=== PATIENT | female | born 1965 | race Caucasian/White ===

== ENCOUNTER → 2021-06-27 15:36 | Outpatient (BNVA) | payer MEDICARE, MEDICAID, SELFPAY | PROVIDERS: Family Provider Nurse Practitioner Family; Visit Provider Orthopaedic Surgery | DX: M48.02 Spinal stenosis, cervical region; M47.12 Other spondylosis with myelopathy, cervical region | CPT/HCPCS: 72050 ==

== ENCOUNTER 2021-09-05 09:46 | Outpatient (CLI) | payer MEDICARE, MEDICAID, SELFPAY ==
--- NOTE | 2021-09-05 09:56 | MR_ITS ---
WS: [id number] MRI CERVICAL SPINE NONCONTRAST TECHNIQUE: Sagittal T1, T2 and STIR imaging. Axial T2, gradient, and fiesta imaging. CLINICAL INFORMATION: PAIN;SPONDYLOSIS W/MYELOPATHY CERVICAL REGIONA COMPARISON: None. FINDINGS: Some images degraded by patient motion. Straightening of the normal cervical lordosis. Disc osteophyte complex worse at C4 through C6. Slight anterolisthesis C4 on C5. Grade 1 anterolisthesis C6 on C7 measuring 3.[address] Severe central canal st enosis C5-C6 and C6-C7 with indentation and flattening of the cervical cord. Associated T2 cord signa l abnormality at these levels. C2-C3: Mild left bony foraminal narrowing. Moderate facet arthropathy. Mild disc osteophytic ridging. C3-C4: Moderate to advanced bilateral facet arthropathy. Spinal canal is patent. Moderate bilateral b mahi foraminal narrowing. C4-C5: Disc osteophyte complex with endplate ridging. Slight anterolisthesis. Small central disc oste ophyte protrusion with slight contact of the cervical cord and mild central canal stenosis. Severe ri ght and moderate left bony foraminal narrowing. Advanced facet arthropathy worse in the right. C5-C6: Disc osteophyte complex with endplate ridging. Severe central canal stenosis and indentation a nd flattening of the cervical cord. Severe bilateral bony foraminal narrowing. Moderate facet arthrop athy with uncovertebral joint hypertrophy. C6-C7: Grade 1 anterolisthesis. Severe central canal stenosis with central disc osteophyte disc bulgi ng. Flattening of the cervical cord with T2 signal abnormality. Moderate bilateral bony foraminal jeronimo rowing. Moderate facet arthropathy. Right dorsal ligamentum flavum hypertrophy or osteophyte. C7-T1: Tiny shallow central disc bulging. Spinal canal and foramen are patent. Small amount of edema in the articulating right greater than left C6-C7 articulating facets.Small ves heidi changes partially visualized in the inez. MR/MR cervical spin wo con* [id number] IMPRESSION: 1. Straightening of the normal cervical lordosis with severe central canal jeronimo rowing C5-C6 and C6-C7. Associated impingement with flattening of the cervical cord. Associated T2 cord signal abnormality at these levels. 2. Slight anterolisthesis C4 on C5 and grade 1 anterolisthesis C6 on C7 measur ing 3.3 mm. 3. Severe bilateral bony foraminal narrowing C5-C6 and moderate bony foraminal narrowing C6-C7. 4. Advanced facet arthropathy worse at C3-4, right C4-5, bilateral C5-C6. Notified Magnus Maya DO at 09/05/2021 11:36 AM.
== END 2021-09-05 09:47 | disposition home or self-care (01) ==
LOC: RADSHAW 09:48
PROVIDERS: Visit Provider Orthopaedic Surgery
DX: M47.12 Other spondylosis with myelopathy, cervical region (principal); M47.812 Spondylosis without myelopathy or radiculopathy, cervical region
CPT/HCPCS: 72141

== ENCOUNTER → 2021-09-21 11:42 | Outpatient (BNVA) | payer MEDICARE, MEDICAID, SELFPAY | PROVIDERS: Visit Provider Orthopaedic Surgery | DX: Z01.818 Encounter for other preprocedural examination (principal); Z20.822 Contact with and (suspected) exposure to COVID-19; M47.12 Other spondylosis with myelopathy, cervical region | CPT/HCPCS: 87635 ==

== ENCOUNTER 2021-09-25 15:00 | Observation (INO) | payer MEDICARE, MEDICAID, SELFPAY ==
--- NOTE | 2021-09-22 11:19 | ECG_ITS ---
[facility] Test Date: 2021-09-22 Pat Name: Amber Franks Department: Room: Gender: Female Cripple Chaser: : 1965 Requested By: Nate Skaggs Order Number: [id number] Samuel MD: Tucker Dimas M.D. Measurements Intervals [place] Rate: 97 P: 82 OK: 134 QRS: 62 QRSD: 82 T: 61 QT: 322 QTc: 409 Interpretive Statements SINUS RHYTHM POSSIBLE LEFT ATRIAL ENLARGEMENT [-0.1mV P WAVE IN V1/V2] No previous ECG available for comparison Electronically Signed On 09-25-2021 17:33:15 SHINGLE CATCHER by Tucker Dimas M.D. [id number]
--- NOTE | 2021-09-22 11:19 | XRR_ITS ---
PROCEDURE INFORMATION: Exam: XR Chest Exam date and time: 09/22/2021 11:19 AM Age: 56 years old Clinical indication: Screening exam; Pre-operative exam; Other: Cspine fusion; Additional info: Copd, evaluate lung space disease TECHNIQUE: Imaging protocol: XR of the chest. Views: 2 views. COMPARISON: CT chest con [id number] 09/08/2020 1:19 PM FINDINGS: Lungs: The lungs are over-inflated with flattening of the diaphragm consistent with pulmonary emphysema. There is upper lobe bullous formation and fibrosis. No acute pneumonia is seen. Pleural spaces: Unremarkable. No pleural effusion. No pneumothorax. Heart/Mediastinum: Unremarkable. No cardiomegaly. Bones/joints: Unremarkable. XR/XR chest 2V* [id number] IMPRESSION: Pulmonary emphysematous changes. No acute abnormality. Radiation Dose CTDIVOL = (mGy): DLP = (mGy-cm)
[2021-09-22 11:52] VITALS: BMI 15.1
[2021-09-22 12:25] LABS: Basophils % 0.2 %; Hemoglobin 14.3 g/dL (11.5-15.3); Lymphocytes # 1.1 10^3/uL (0.8-4.8); Lymphocytes % 7.2 %; Mean Corpuscular HGB Conc 31.8 g/dL (30.0-36.0); Mean Corpuscular Hemoglobin 27.8 pg (28.0-34.0); Mean Corpuscular Volume 87.4 fl (81-99); Mean Platelet Volume 8.7 fL (7.4-10.4); Monocytes # 0.5 10^3/uL (0.2-0.9); Monocytes % 3.2 %; Neutrophils # 12.91 10^3/uL (1.8-7.7); Neutrophils % 88.7 %; Nucleated Red Blood Cells % 0 %; Platelet Count 650 10^3/cmm (130-400); Red Blood Count 5.15 10^6/uL (4.1-5.3); Red Cell Distribution Width 17.5 % (12.1-15.1); White Blood Count 14.6 10^3/uL (4.0-10.0)
--- NOTE | 2021-09-22 12:39 | P.ANESASSM_ITS ---
Pre-Anesthetic Assessment Pre-Anesthetic Assessment: Height/Weight: Height 1.73 m Weight 45.178 kg Preop Diagnosis: Cervical spondylosis with myelopathy Proposed Procedure: Operation Date: 09/25/21 11:20 Proposed Procedures p C-6 Corpectomy(Not Applicable) - Magnus Maya DO s Anterior Cervical Discectomy & Fusion C5/6 C6/7 99820 24440 19323(x2) 44754(x2) 83884 M47.12(Not Applicable) - Magnus Maya DO Was Beta Jaden taken within 24 hours: N/A Was Clonidine taken within 24 hours: N/A Social: Social History: Tobacco and No alcohol Exam: Pre-Anes Outpt Exam: alert, oriented x 3 and regular rate & rhythm Additional Exam Findings (including area of procedure): Decreased BS, rhonchi Airway: Submandibular: WNL Cervical ROM: WNL MP: 2 Dentition: False Pulmonary: Pulmonary: COPD CV/HEM: CV/HEM: HTN Hepatic: Comments: Alpha-1 antitrypsin def Musc/skel: Musc/skel: OA/DJD and Weakness Comments: Myelopathy, trips and falls easy Neuropsych: Neuropsych: Anxiety and Neuropathy Anesthetic Plan: ASA status: 4 Anesthesia: General Other: A.line Risk of > 500 ml blood loss (7ml/kg in children): No PFSH Anesthesia PFSH: Social History Smoking and tobacco status: current every day smoker Data Anesthesia CBC & Chem 7: 09/22/21 12:10 09/22/21 12:10 Other Labs: Laboratory Results - last 48 hr 09/22/21 12:10 WBC 14.6 H RBC 5.15 Hgb 14.3 Hct 45.0 MCV 87.4 MCH 27.8 L MCHC 31.8 RDW 17.5 H Plt Count 650 H MPV 8.7 Neut % (Auto) 88.7 Lymph % (Auto) 7.2 [place] % (Auto) 3.2 Eos % (Auto) 0.0 Baso % (Auto) 0.2 Neut # (Auto) 12.91 H Lymph # (Auto) 1.1 [place] # (Auto) 0.5 Eos # (Auto) 0.0 Baso # (Auto) 0.0 Nucleated RBC % (auto) 0 Nucleated RBCs # 0.0 Cardiac Studies: No Data to Display
[2021-09-22 12:57] LABS: Anion Gap 18.7 (5-19); Blood Urea Nitrogen 14 mg/dL (6-20); Calcium 9.5 mg/dL (8.5-10.5); Carbon Dioxide 25 mmol/L (22-29); Chloride 100 mmol/L (98-107); Glomerular Filtration Rate 73.9 mL/min (90-130); Glucose 104 mg/dL (65-115); Osmolality Calculated 291 mOsm/kg (285-295); Potassium 3.7 mmol/L (3.5-5.1); Sodium 140 mmol/L (136-145)
[2021-09-25] VITALS (14 sets, daily range): BP systolic 92–141; BP diastolic 48–87; PULSE 73–110; RESP 13–21; TEMP 36.4–36.8; O2SAT 90–100; BMI 16.7
--- NOTE | 2021-09-25 | SCC_ITS ---
Procedure Done: 1. Anterior diskectomy C5/6 2. Anterior discectomy C6/7 3. corpectomy C6 greater than 50% 4. Insertion of Corpectomy cage C5-C7 5. Instrumentation with anterior plate from C5-C7 6. Use of allograft 27 seconds of fluoroscopic guidance, for a cumulative dose of 0.81 mGy, was provided to Dr. Maya by the radiology department. C-arm images of the cervical spine were saved for the patient's permanent record. NOLAN
--- NOTE | 2021-09-25 | XR_ITS ---
WS: [id number] Exam: XR cervical spine 3V* [id number] Date/Time of Exam: 09/25/2021 12:00 AM Reason For Exam: spondylosis with myelopathy Single AP and lateral intraoperative C-arm images of the cervical spine are submitted for evaluation. There is anterior plate and screw fixation from C5 to C7 with an intervening spacer at the C6 level. Hardware position appears to be satisfactory. An endotracheal tube is visualized in the airway.
--- NOTE | 2021-09-25 11:50 | P.ANESUD_ITS ---
Pre-Anesthetic Update Pre-Anesthetic Assessment: Date of Surgery/Procedure: 09/25/21 Preop Ann gnosis: Cervical spondylosis with myelopathy Proposed Procedure: Operation Date: 09/25/21 11:20 Proposed Procedures p C-6 Corpectomy(Not Applicable) - Magnus Maya, DO s Anterior Cervical Discectomy & Fusion C5/6 C6/7 51425 50096 50459(x2) 44085(x2) 80927 M47.12(Not Applicable) - Magnus Maya, DO Any changes to Pre-Anesthetic Assessment?: No Last Intake: Intake Last Liquid Date 09/25/21 Last Liquid Time 22:00 Last Solid Date 09/25/21 Last Solid Time 22:00 Vitals: Temperature 98.2 F 09/25/21 10:46 Temperature Source Temporal Artery S can 09/25/21 10:46 Pulse Rate 92 09/25/21 10:46 Respiratory Rate 18 09/25/21 10:46 Blood Pressure 137/65 09/25/21 10:46 Blood Pressure Lyudmila n 89 09/25/21 10:46 Pulse Oximetry 94 09/25/21 10:46 Oxygen Delivery Me thod 09/25/21 10:37 Exam: Pre-Anes Outpt Exam: alert, oriented x 3, clear to auscultation bilaterally and regular rate & rhythm Cardiac Studies: No Data to Display
--- NOTE | 2021-09-25 12:00 | W.PM.OPSUD ---
Surgery/Procedure H&P Update DATE OF PROCEDURE: September 25, 2021 DATE H&P PERFORMED: 09/05/21 H&P UPDATE INFORMATION: I have reviewed H&P completed within last 30 days, I have examined patient prior to procedure and No changes to prior documentation PREOP DIAGNOSIS: Cervical spondylosis with myelopathy PLANNED PROCEDURE: Operation Date: 09/25/21 11:20 Proposed Procedures p C-6 Corpectomy(Not Applicable) - DO otis Harman Anterior Cervical Discectomy & Fusion C5/6 C6/7 [id number] 56317(x2) 85461(x2) 44211 M47.12(Not Applicable) - Magnus Maya DO
[2021-09-25] MEDS: fentaNYL 50 mcg/mL INJ 2mL IVP ×2 (15:16→15:21)
--- NOTE | 2021-09-25 15:30 | P.OP_ITS ---
Operative Report Date of procedure: September 25, 2021 Pre-op Diagnosis: Cervical spondylosis with myelopathy Post-op diagnosis: same Procedure Done: 1. Anterior diskectomy C5/6 2. Anterior discectomy C6/7 3. corpectomy C6 greater than 50% 4. Insertion of Corpectomy cage C5-C7 5. Instrumentation with anterior plate from C5-C7 6. Use of allograft Surgeon: Magnus Maya Master Fire Control Technician: Noble Alexander Master Fire Control Technician: The malt specifications control assistant, Noble Alexander, GORDON was needed for his expertise under the microscope. He was important and necessary throughout the procedure to complete in a safe and timely manner. He assisted with patient positioning prepping and draping tissue retraction suctioning of the operative field protection of the dural sac and tissue closure Anesthesia: General Estimated blood loss (mL): 50 Condition: stable Disposition: PACU Procedure: 1. Anterior diskectomy C5/6 2. Anterior discectomy C6/7 3. corpectomy C6 greater than 50% 4. Insertion of Corpectomy cage C5-C7 5. Instrumentation with anterior plate from C5-C7 6. Use of allograft 7. use of autograft The patient was taken to the operating room, where he underwent general endotracheal anesthesia without complications. He was then positioned supine on the operating table, and all areas of impingement were well padded. The arms were carefully padded and tucked at his sides. A roll was placed between the shoulder blades.. An x-ray was done to determine the appropriate level for the skin incision. The entire neck was then sterilely prepped and draped in the usual fashion. Neuromonitoring was attached prior to prepping. A transverse skin incision was made and carried down to the platysma muscle. This was then split in line with its fibers. Blunt dissection was carried down medial to the carotid sheath and lateral to the trachea and esophagus until the anterior cervical spine was visualized. A needle was placed into a disc and an x-ray was done to determine its location. The longus colli muscles were then e levated bilaterally with the electrocautery unit. Self-retaining retractors were placed deep to the longus colli muscle. Attention was brought to the C5 to C7 level that was confirmed on x-ray. A april par pin was placed into the C5 vertebrae and the C7 vertebrae. The disk spaces was then distracted. The microscope was then brought in. A radical anterior discectomies were performed at C5/6 and C6/7. This included complete removal of the anterior annulus, nucleus, and posterior annulus. The posterior longitudinal ligament was removed as were the posterior osteophytes. Foraminotomies were then accomplished bilaterally. This was done using a high speed conrado, kerrison rongeurs and curretes Once all of this was accomplished, the curved currette was used to check for any residual compression. The central canal was wide open as were the foramen. A high-speed bur was used to remove the cartilaginous endplates C5 inferiorly and superiorly at C7 Bleeding cancellous bone was exposed. The C6 corpectomy was then performed. High speed bur was used to take out the lateral aspect of the C6 vertebrae. The rongeur was used to remove bone. The disc bases were identified and curved curette was used to identify the posterior aspect of the vertebrae and then a 2 oh Kerrison was used to remove the vertebrae down to the posterior longitudinal ligament. The posterior longitudinal ligament was expo sed from the superior aspect of C7 up to the inferior aspect of C5. This was then removed using the Kerrison rongeur dura was exposed from superior aspect of C7 up to the inferior aspect of C5. The space was then irrigated a trial was measured the appropriate size cage was then inserted the bone graft from the cage was allograft osteoamp as well as some of the bone from the corpectomy. The [place] pins were removed. Bone wax was used to prevent any bleeding from occurring at the pin sites. The appropriate size anterior cervical locking plate was chosen and bent into gentle lordosis. Two screws were then placed into each of the vertebral bodies at C5 and C7. There was excellent purchase. A final x-ray was done confirming good position of the hardware and Cages. The locking screws were then applied, also with excellent purchase. Following a final copious irrigation, there was good hemostasis and no dural leaks. The carotid pulse was strong. The wounds were then closed in layers using 2-0 Vicryl suture for the platysma muscle, 2-0 Vicryl suture for the subcutaneous tissue, and 4-0 monocryl suture in a subcuticular skin closure. Glue was placed followed by application of a sterile dressing. The drain was hooked to bulb suction. A soft collar was applied. The patient was then carefully returned to the supine position on his hospital bed where he was reversed and extubated and taken to the recovery room having tolerated the procedure well.
--- NOTE | 2021-09-25 16:59 | ANE.PACU2 ---
Inpatient post-anesthesia follow up: Airway intact: Yes Vital signs: Temperature 97.8 F Pulse Rate 86 Respiratory Rate 18 Blood Pressure 140/87 Pulse Oximetry 94 Oxygen Delivery Me thod Room Air Oxygen Flow Rate 8 Fraction of Inspir ed Oxygen Hydration adequate: Yes Nausea and vomiting: No Pain level: 2 Mental status: Baseline
[2021-09-25] MEDS: HYDROcodone-acetaminophen 5-325 mg Tablet PO (17:09)
[2021-09-25] MEDS: gabapentin 300 mg Capsule 600 MG PO (22:18)
[2021-09-25] MEDS: lisinopril 2.5 mg Tablet PO (22:18)
[2021-09-26] VITALS: BP 93/54; PULSE 83; RESP 17; TEMP 36.6; O2SAT 94
[2021-09-26] MEDS: lactated ringers 1,000 ML 90 ML IV (02:43)
[2021-09-26 05:12] VITALS: BP 101/62; PULSE 76; RESP 17; TEMP 36.6; O2SAT 94
[2021-09-26] MEDS: enoxaparin 40 mg/0.4 mL Syringe SUBCUT (05:21)
--- NOTE | 2021-09-26 07:32 | P.PN_ITS ---
Documented by User: LAITH Boyle 09/26/21 07:34 Subjective Subjective: Interval history: POD 1 Patient reports improvement of her arms and legs with her ability to mobilize. Some mild swallowing discomfort. Denies any voice changes shortness of breath or chest pain. She is feeling better postoperatively. Some mild neck pain. she is ambulating to the bathroom. Vitals/I&O/Wt Last Vital Signs Temp 97.8 F 09/26/21 05:12 Pulse 76 09/26/21 05:12 Resp 17 09/26/21 05:12 BP 101/62 09/26/21 05:12 Pulse Ox 94 09/26/21 05:12 09/25/21 09/26/21 09/26/21 22:59 06:59 14:59 Intake Total 540 / 600 160 / 760 120 / 120 Output Total 50 / 50 Balance 490 / 550 160 / 710 120 / 120 Weight last 48 hrs Weight 110 lb Physical Exam Narrative: EXAM NARRATIVE: Patient is alert and oriented x3 with a good general appearance normal normal affect. Mildly tender with palpation about the incisional site. Good motor strength throughout both upper extremities. Appears to fire in all motor groups with 4/5 strength. Hands are warm good cap refill in all digits. Normal sensation to light touch in all dermatomal areas. Data : 09/22/21 12:10 09/22/21 12:10 A&P Assessment and plan (1) Spondylosis of cervical spine with myelopathy: Continue mobilizing with a walker. Have physical therapy evaluate. Should continue the [place] J collar. We will see her back in the office in 1 week's time for wound check. She will call if she is having problems. Work on discharging her home today. Status: Acute (2) Status post cervical spinal fusion: Status: Acute Attestations Medical Necessity Statement*: home today Coding Level of Care Code Acute Cut Off Sawyer Log for Edna Abad Diagnoses Spondylosis of cervical spine with myelopathy M47.12 Status post cervical spinal fusion Z98.1 Documented by User: Magnus Maya DO 09/26/21 08:36 Data : 09/22/21 12:10 09/22/21 12:10 Coding Level of Care Code Acute Cut Off Sawyer Log for Chg Fwd Diagnoses Spondylosis of cervical spine with myelopathy M47.12 Status post cervical spinal fusion Z98.1
[2021-09-26] MEDS: HYDROcodone-acetaminophen 5-325 mg Tablet PO (07:55)
[2021-09-26] MEDS: gabapentin 300 mg Capsule 600 MG PO (07:55)
[2021-09-26] MEDS: docusate sodium 100 mg Capsule PO (07:55)
[2021-09-26] MEDS: latanoprost 0.005% Op Soln 2.5 mL Btl 1 DROP EYE-BOTH (07:56)
[2021-09-26] MEDS: venlafaxine ER (24HR) 75 mg Capsule PO (08:04)
--- NOTE | 2021-09-26 08:36 | P.DS_ITS ---
Discharge Providers Date of Admission: 09/25/21 15:00 Date of Discharge: September 26, 2021 Attending Provider at Admission: Magnus Maya DO Attending Provider at Discharge: Magnus Maya DO Primary Care Provider: Dasia Sena MD Diagnoses at Discharge Discharge Diagnosis (1) Spondylosis of cervical spine with myelopathy: Status: Acute (2) Status post cervical spinal fusion: Status: Acute Reason for Visit Reason for Visit: Spondylosis with myelopathy Hospital Course Hospital Course Patient is admitted on 09/25/2021 for a C6 corpectomy ACDF. She will be discharged on 09/26/2021. Her hospital stay was uneventful. Discharge Data Data Completed and Pending: Completed Studies During Hospitalization Category Date Time Status XR cervical spine 3V* [id number] Routine Exams 09/25/21 Completed XR chest 2V* [id number] Routine Exams 09/22/21 11:19 Completed Pending at discharge Category Date Time Status C-arm Fluoroscopy [id number] Routine Exams 09/25/21 10:04 Taken Vitals: Last Vital Signs Temp 97.8 F 09/26/21 05:12 Pulse 76 09/26/21 05:12 Resp 17 09/26/21 05:12 BP 101/62 09/26/21 05:12 Pulse Ox 94 09/26/21 05:12 Discharge Plan Discharge Patient Disposition: Home Condition: Stable Prescriptions: New hydrocodone-acetaminophen 5-325 mg tablet 1 - 2 tab PO .Q4-6H Qty: 40 RF: 0 Continued omega-3 acid ethyl esters 1 gram capsule 1 cap PO DAILY RF: 0 venlafaxine 75 mg capsule,extended release 24hr 75 mg PO DAILY RF: 0 gabapentin 600 mg tablet 600 mg PO TID RF: 0 cholecalciferol (vitamin D3) 125 mcg (5,000 unit) capsule 125 mcg PO DAILY RF: 0 latanoprost 0.005 % drops 1 drp ophthalmic (eye) DAILY RF: 0 lisinopril 2.5 mg Tablet 2.5 mg PO BEDTIME RF: 0 Xanax 1 mg Tablet 1 mg PO TID RF: 0 Discharge Orders: Discharge Order (Routine); Ordered 09/26/21 Ordered By: Magnus Maya Discharge Diet: Advance as tolerated Discharge Activity: Limit activity as instructed Patient Instructions: Opioid Safety Activity Restrictions/Additional Instructions: Thank you for choosing [facility] for your care! The following is a list of instructions, from your provider, to follow upon your discharge to ensure you have the optimal recovery from your recent injury or surgery. Anterior Cervical Discectomy and Fusion: What to Expect at Home Your Recovery Follow-up care is a ceballos part of your treatment and safety. Be sure to make and go to all appointments, and call your doctor if you are having problems. If you do not already have a follow-up appointment made, call office in the next 1-3 days to make follow up appointment for 2 weeks at [phone]. It is also a good idea to know your test results and keep a list of the medicines you take. You can expect your neck to feel stiff or sore after surgery. This should improve in the weeks after surgery. But it may take 4 to 6 months for you to get better completely. You may have trouble sitting or standing in one position for very long and may need pain medicine in the weeks after your surgery. It may take 4 to 6 weeks to get back to your usual activities, but it may depend on what kind of surgery you had. Your throat will feel sore and it may be difficult to swallow for the first 3 days after your surgery. As long as you can get liquids down without difficulty, this should slowly improve, otherwise call our office or seek medical attention if it becomes increasingly difficult to get anything down including liquids. Avoid hot liquids for first 3-5 days. Soothing foods/liquids such as jello, pudding, and luke warm soups are recommended until swallowing improves. Staying elevated will also help, it's advised you keep propped up at while sleeping to help reduce the swelling. You may use an ice pack directly on your incision or around it on the front of your neck, using a cloth to protect your skin; and a heating pad to the back of your neck as needed. Do not use over the counter anti-inflammatory medications (Ibuprofen, Motrin, Aleve, Advil, etc) Taking these meds after having a fusion can delay fusion rates, we recommend you avoid them for the first 3 months after your surgery[address] Dr. Maya may advise you to work with a physical therapist to strengthen the muscles around your neck and back - this will be discussed at your follow - up appointments. The pain or numbness you were having in your arms before surgery should get better or go away completely. This care sheet gives you a general idea about how long it will take for you to recover. But each person recovers at a different pace. Follow the steps below to get better as quickly as possible. How can you care for yourself at home? Activity ? Rest when you feel tired. Getting enough sleep will help you recover. ? Try to walk each day. Start by walking a little more than you did the day before. Bit by bit, increase the amount you walk. Walking boosts blood flow and helps prevent pneumonia and constipation. Walking may also decrease your muscle soreness after surgery. ? No lifting anything that is more that 5 pounds. This may include heavy grocery bags and milk containers, a heavy briefcase or backpack, cat litter or dog food bags, a child, or a vacuum carpet cleaner. ? Avoid strenuous activities, such as bicycle riding, jogging, weightlifting, or aerobic exercise, until your doctor says it is okay. ? Do not drive until your follow-up visit after your surgery, or until your doctor says it isokay. ? Avoid taking long car trips for 2 to 4 weeks after surgery. Your neck may become tired and painful from sitting too long in one position. ? You will probably need to take 4 to 6 weeks off from work. It depends on the type of work you do and how you feel. ? You may have sex as soon as you feel able, but avoid positions that put stress on your neck or cause pain. Diet ? You can eat your normal diet. If your stomach is upset, try bland, low-fat foods like plain rice, broiled chicken, toast, and yogurt ? Drink plenty of fluids. If you have kidney, heart, or liver disease and have to limit fluids, talk with your doctor before you increase the amount of fluids you drink. ? You may notice that your bowel movements are not regular right after your surgery. This is common. Try to avoid constipation and straining with bowel movements. You may want to take a fiber supplement every day. If you have not had a bowel movement after a couple of days, ask your doctor about taking a mild laxative. Medicines ? Take pain medicines exactly as directed. 1. If Dr. Maya gave you a prescription medicine for pain, take lt as prescribed. 2. Do not take two or more pain medicines at the same time unless the doctor told you to. Many pain medicines have acetaminophen, which is Tylenol. Too much acetaminophen {Tylenol) can be harmful. 3. If you think your pain pill is making you sick to your stomach: 4. Take your pills after meals (unless your doctor has told you not to). 5. Ask your Dr. for a different pain pill. Incisioncare ? Remove your dressing 48hours after your surgery. Ok to shower and get the incision wet. Do not overtly wash your incision. When done, pad dry, leave open to air thereafter. Avoid creams and ointments directly on your incision. ? Your sutures in the incision will dissolve and fall out on their own. ? Keep the area clean and dry. You may cover it with a gauze bandage if it weeps or rubs against clothing; if you choose to do this, change the dressing everyday. Other instructions ? Use a heating pad, hot water bottle, or gentle massage on your back to reduce stiffness. Avoid putting heat on your incision When should you call for help? ? Call 911 anytime you think you may need emergency care. For example, call if: ? You pass out (lose consciousness). ? You have sudden chest pain and shortness of breath, or you cough upblood. ? You cannot swallow. ? You have severe pain in your neck or back. ? Call your Dr. or seek immediate medical care if: ? You have pain that does not get better after you take pain pills. ? You have loose stitches, or your incision comes open. ? You have blood or fluid draining from the incision. ? You have signs of infection, such as: 1. Increased pain, swelling, warmth, or redness. 2. Red streaks leading from the site. 3. Pus draining from the site. 4. Swollen lymph nodes in your neck or armpits. 5. A fever. ? You have severe pain in your arms. ? You have new or increased weakness or numbness in your arms. ? Watch closely for any changes in your health, and be sure to contact your doctor if: ? You do not have a bowel movement after taking a laxative. Discharge Attestations Time Spent in Discharge Care*: less than 30 min Quality Metrics Clinical Quality Measures During this hospital stay, did patient experience: None Coding Level of Care Code Acute Chg FW DC note Diagnoses Spondylosis of cervical spine with myelopathy M47.12 Status post cervical spinal fusion Z98.1
[2021-09-26 08:41] VITALS: PULSE 108; RESP 18; O2SAT 93
--- NOTE | 2021-09-26 13:07 | PC.NURSE ---
DISCHARGE INSTRUCTIONS DISCHARGE INSTRUCTIONS GIVEN TO PT AND FAMILY MEMBER - BOTH VERBALIZE UNDERSTANDING - PT REQUESTS THAT HYDROCODONE SCRIPT BE SENT TO [facility] AT DR HUGO'S OFFICE NOTIFIED AND WILL GIVE REQUEST TO DR OANH PHILIPPE
[2021-09-26 13:10] VITALS: PULSE 108; RESP 18; O2SAT 93
== END 2021-09-26 13:12 | disposition home or self-care (01) ==
LOC: MEDSURG 15:04
PROVIDERS: Anesthesiology; Admitting Provider Orthopaedic Surgery; PCP Obstetrics & Gynecology; Visit Provider Orthopaedic Surgery
PROC: (CPT 22554; principal; 2021-09-25 11:10)
PROC: 0RB30ZZ Excision of Cervical Vertebral Disc, Open Approach (ICD-10-PCS; CPT 22551; 2021-09-25 11:10)
DX: M47.12 Other spondylosis with myelopathy, cervical region (principal); J44.9 Chronic obstructive pulmonary disease, unspecified; I10 Essential (primary) hypertension; E88.01 Alpha-1-antitrypsin deficiency; F41.9 Anxiety disorder, unspecified; F17.200 Nicotine dependence, unspecified, uncomplicated
CPT/HCPCS: 22554 ×2; 22585; 22845 ×2; 22854 ×2; 36415; 71046; 72040; 76000; 80048; 85025; 93005; 96372; 97110; 97116; 97161; 97530; 97760; C1713; C9359; G0378; J0330; J0690; J1100; J1650; J2370; J2405; J2704; J2710; J3010; J3490; L0174

== ENCOUNTER → 2021-11-14 15:26 | Outpatient (BNVA) | payer MEDICARE, MEDICAID, SELFPAY | PROVIDERS: PCP Obstetrics & Gynecology; Visit Provider Physician Assistant | DX: Z98.1 Arthrodesis status (principal) | CPT/HCPCS: 72040 ==

== ENCOUNTER → 2021-12-26 13:13 | Outpatient (BNVA) | payer MEDICARE, MEDICAID, SELFPAY | PROVIDERS: PCP Obstetrics & Gynecology; Visit Provider Physician Assistant | DX: Z98.1 Arthrodesis status (principal) | CPT/HCPCS: 72040 ==

== ENCOUNTER → 2022-02-06 14:55 | Outpatient (BNVA) | payer MEDICARE, MEDICAID, SELFPAY | PROVIDERS: PCP Obstetrics & Gynecology; Visit Provider Physician Assistant | DX: M54.2 Cervicalgia (principal); Z98.1 Arthrodesis status | CPT/HCPCS: 72040; 99214; 99999 ==

== ENCOUNTER 2022-02-28 11:16 | Outpatient (CLI) | payer MEDICARE, MEDICAID, SELFPAY ==
--- NOTE | 2022-02-28 10:30 | CT_ITS ---
WS: [id number] CT CERVICAL SPINE TECHNIQUE: Noncontrast CT of the cervical spine with coronal and sagittal reformatted images. CLINICAL INFORMATION: post op COMPARISON: None. DLP: 226.[address] scans at [facility] use at least one of these dose optimization techniques: automated e xposure control; mA and/or kV adjustment per patient size (includes targeted exams where dose is matc hed to clinical indication); or iterative reconstruction. FINDINGS: Straightening of the normal cervical lordosis. Slight grade 1 anterolisthesis C4 on C5 measuring 2.6 mm. Postoperative changes ACDF with partial corpectomy and interbody strut graft C5-C7. Partial corpe ctomy at C6. Hardware appears intact. No evidence of hardware loosening. Central canal stenosis has b een decompressed compared to the prior MRI September 05, 2021. C2-C3: Mild facet arthropathy worse in the LEFT. Small central disc osteophyte complex. Mild LEFT for aminal narrowing. C3-C4: Moderate RIGHT and no significant LEFT foraminal narrowing. Advanced facet arthropathy. Small central disc protrusion. Mild central canal stenosis. C4-C5: Advanced RIGHT facet arthropathy. Small central disc protrusion with mild central canal stenos is. Slight contact of the cervical cord. Mild RIGHT foraminal narrowing. C5-C6: Postoperative changes anterior cervical fusion. Moderate LEFT and mild RIGHT bony foraminal na rrowing. Moderate to advanced facet arthropathy with uncovertebral joint hypertrophy. Mild central ca nal stenosis with osteophytic ridging. C6-C7: Postoperative changes partial corpectomy with spinal canal decompression. Spinal canal is olvera nt. Mild LEFT and no significant RIGHT foraminal narrowing. C7-T1: No significant disc bulging. Spinal canal and foramen are patent. Visualized posterior nasopharynx: Normal. Prevertebral soft tissues: Normal. Cystic bronchiectasis partially visualized in the upper lobes with emphysematous change with bulla fo rmation. Thick-walled cavitary lesion in the RIGHT upper lobe appears similar to September 08, 2020. CT/CT cervical spin wo con* [id number] IMPRESSION: 1. Straightening of the normal cervical lordosis with grade 1 anterolisthesis C4 on C5 is unchanged. 2. Anterior cervical fusion C5-C7 with partial corpectomy at C6. Interbody str ut graft is new from previous. Spinal canal narrowing has been decompressed at these levels. 3. Small central disc protrusions at C3-C4 and C4-C5 with mild central canal s tenosis. 4. Multilevel moderate bony foraminal narrowing worse at RIGHT C3-C4, RIGHT C4 -C5, and LEFT C5-C6. This is worse at LEFT C5-C6. 5. Moderate to advanced asymmetric facet arthropathy worse at LEFT C2-C3, RIGH T C3-C4, RIGHT C4-C5, and bilateral C5-C6. 6. Cavitary spiculated lesion in the RIGHT upper lobe is similar to the prior examinations. This is only partially visualized. Recommend interval follow-up w ith chest CT.
== END 2022-02-28 11:17 | disposition home or self-care (01) ==
LOC: RAD 11:20
PROVIDERS: PCP Obstetrics & Gynecology; Visit Provider Physician Assistant
DX: Z98.1 Arthrodesis status (principal); M50.21 Other cervical disc displacement, high cervical region; J98.4 Other disorders of lung
CPT/HCPCS: 72125

== ENCOUNTER 2022-03-08 10:00 | Outpatient (CLI) | payer MEDICARE, MEDICAID, SELFPAY ==
--- NOTE | 2022-03-08 10:14 | MR_ITS ---
WS: [id number] MRI CERVICAL SPINE NONCONTRAST HISTORY: post op COMPARISON: 09/05/2021. CT 02/29/2020. Technique: Multiplanar, multisequence noncontrast imaging of the cervical spine. Status post anterior cervical fusion from C5 through C7 with partial corpectomy at C6. Slight straightening of the normal cervical lordosis. Mild metal artifact at the level of the fusion. No new areas of marrow edema. Focal area of increased T2 signal extends over a length of 2.1 cm cent ered at C5-C7. This has been previously described on the prior MRI with mild progression. Increased o n the T2 sequences and low signal on the T1 in the central cervical cord. Craniocervical junction, C1 and C2 relationship, odontoid process and soft tissues are normal. C2-C3: Mild LEFT bony foraminal stenosis. Small central disc with no central stenosis. C3-C4: Diffuse annular disc bulging and osteophytic ridging. Small central disc protrusion. Moderate bilateral foraminal narrowing due to osteophytes. C4-C5: Mild annular disc bulging. C4 anterolisthesis by 3 mm. Disc osteophyte complexes bilaterally. There is a central disc contacting the ventral cord. Disc osteophyte complexes are causing at least m oderate to severe foraminal stenosis and mild central stenosis. C5-C6: Severe central canal stenosis. Disc and osteophyte encroaching into the RIGHT foramen with sev ere stenosis. There is an abrupt termination of CSF along the RIGHT lateral thecal sac. Suspicious fo r an osteophyte or disc protrusion extending into the RIGHT subarticular recess. There is also ligame ntum flavum hypertrophy posterior lateral on the RIGHT. Disc and osteophyte disease causing a moderat e to severe LEFT foraminal stenosis also. C6-C7: Soft tissue encroachment or bone encroachment into the posterior lateral RIGHT thecal sac defo rming the thecal sac. On the CT this encroachment upon the thecal sac is noted to be a bone fragment or osteophyte. Moderate to severe central and mild bilateral foraminal stenosis. C7-T1: Mild disc bulging. No stenosis. Paraspinal soft tissue are normal. MR/MR cervical spin wo con* [id number] IMPRESSION: 1. Patient is status post prior anterior cervical fusion from C5 through C7 wi th partial corpectomy at C6. 2. Severe central stenosis at C5-6. Abrupt termination of CSF along the RIGHT lateral thecal sac. Suspect there may be a disc protrusion or osteophyte extend ing along the RIGHT thecal sac contributing to the stenosis. There is severe ce ntral and moderate to severe bilateral foraminal stenosis at this level. 3. Moderate to severe foraminal stenosis and mild central stenosis at C4-5. 4. Moderate to severe central and mild bilateral foraminal stenosis at C6-7. 5. Moderate bilateral foraminal stenosis at C3-4. 6. 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
== END 2022-03-08 10:01 | disposition home or self-care (01) ==
PROVIDERS: PCP Obstetrics & Gynecology; Visit Provider Physician Assistant
DX: M47.12 Other spondylosis with myelopathy, cervical region (principal); Z98.1 Arthrodesis status
CPT/HCPCS: 72141; 99214

== ENCOUNTER 2022-03-16 13:31 | Inpatient (IN) | payer MEDICARE, MEDICAID, SELFPAY ==
[2022-03-13 13:14] VITALS: BMI 16.9
[2022-03-16] VITALS (24 sets, daily range): BP systolic 94–178; BP diastolic 67–108; PULSE 80–115; RESP 12–18; TEMP 36.1–36.7; O2SAT 94–100
--- NOTE | 2022-03-16 | SCC_ITS ---
71.4 seconds of fluoroscopic guidance, for a cumulative dose of 3.70 mGy, was provided to Dr. Maya by the radiology department. C-arm images of the cervical spine were saved for the patient's permanent record. [facility]
--- NOTE | 2022-03-16 | XR_ITS ---
WS: [id number] Exam: XR cervical spine 3V* [id number] Date/Time of Exam: 03/16/2022 12:00 AM Reason For Exam: cervical spondylosis Comparison 02/06/2022. Stable-appearing anterior fusion hardware from C5 to C7. New posterior hardware extends from C3 to T2 . Alignment is satisfactory. An endotracheal tube is noted in the airway. XR/XR cervical spine 3V* [id number] IMPRESSION: 1. Recent Posterior fusion from C3 to T2 which appears to be in satisfactory al ignment. 2. Pre-existing anterior fusion from C5 to C7 is stable in appearance.
--- NOTE | 2022-03-16 10:12 | ANES.PREANE2 ---
Pre-Anesthetic Assessment Height/Weight: Height 1.73 m Weight 50.349 kg Temp Pulse Resp BP Pulse Ox 98 F 84 15 139/91 95 03/16/22 10:00 03/16/22 10:00 03/16/22 10:00 03/16/22 10:00 03/16/22 10:00 Preop Diagnosis: Cervical Spondylosis with Myelopathy Operation Date: 03/16/22 10:50 Proposed Procedures p Cervical Posterior Fusion C3-T2, C5-7 Decompression [id number]/01462/m47.12(Not Applicable) - Magnus Maya, DO Familial anesthetic complications: None Was Beta Jaden taken within 24 hours: N/A Was Clonidine taken within 24 hours: N/A Last intake: Intake Last Liquid Date 03/16/22 Last Liquid Time 09:00 Last Solid Date 03/15/22 Last Solid Time 20:00 Social Tobacco and No alcohol Exam alert, oriented x 3 and regular rate & rhythm breath sounds diminished b/l no murmurs Airway Submandibular: within normal limits Cervical ROM: Other (very limited extension/flexion ) Mallampati: Class III Dentition: false Pulmonary Exertional Dyspnea Hx of alpha 1 antitrypsin affecting lungs, denies liver involvement CV/HEM Congestive Heart Failure and Hypertension EKG 10/10 Interpretive Statements SINUS RHYTHM POSSIBLE LEFT ATRIAL ENLARGEMENT? [-0.1mV P WAVE IN V1/V2] No previous ECG available for comparison Electronically Signed On 09-25-2021 17:33:15 [employer]ORDINATE MEASURING MACHINE OPERATOR by Tucker Dimas M.D. [email or web address] None reported Hepatic None reported GI None reported Metabolic None reported Musc/skel Lower Back Pain and Osteoarthritis/DJD Chronic pain Cervical spondylosis w/ myelopathy Neuropsych Anxiety and Depression Anesthetic Plan ASA status: 3 Anesthesia: Anesthesia Evaluation and General Other: We discussed risk and benefits of general anesthesia including PONV, sore throat (sometimes severe), corneal abrasion, positioning and peripheral nerve injuries, life threatening allergic reaction, post operative ICU admission requiring prolonged intubation, stroke, heart attack, , and rare incidences of recall. Patient consents to proceed with general anesthesia. Plan GETA, 2 PIV , arterial line Risk of > 500 ml blood loss (7ml/kg in children): No Medications/Allergies Home Medications Medication Instructions Recorded Confirmed Last Taken Type cholecalciferol (vitamin D3) 125 125 mcg PO DAILY 06/27/21 03/16/22 03/15/22 History mcg (5,000 unit) capsule gabapentin 600 mg tablet 600 mg PO TID 06/27/21 03/16/22 03/16/22 History omega-3 acid ethyl esters 1 gram 1 cap PO DAILY 06/27/21 03/16/22 03/15/22 History capsule venlafaxine 75 mg capsule,extended 75 mg PO DAILY 06/27/21 03/16/22 03/15/22 History release 24 hr latanoprost 0.005 % eye drops 1 drp OPHTHALMIC (EYE) DAILY 09/05/21 03/16/22 03/15/22 History alprazolam 1 mg tablet (Xanax) 1 mg PO TID 09/22/21 03/16/22 03/16/22 History lisinopril 2.5 mg tablet 2.5 mg PO BEDTIME 09/22/21 03/16/22 03/15/22 History hydrocodone 5 mg-acetaminophen 325 1 - 2 tab PO .Q4-6H #40 tab 09/25/21 03/13/22 Unknown Rx mg tablet Physical Therapy- [place] #1 ea 12/26/21 03/06/22 Unknown Rx Rehabilitation pravastatin 20 mg tablet 20 mg PO DAILY 03/13/22 03/16/22 03/02/22 History hydrocodone 5 mg-acetaminophen 325 1 - 2 tab PO .Q4-6H PRN 7 Days #40 03/15/22 03/16/22 03/16/22 Rx mg tablet tab Allergies Allergy/AdvReac Type Severity Reaction Status Date / Time quinine Allergy ALGY-Rash Verified 03/13/22 13:09 [facility] Anesthesia Social History Smoking and tobacco status: current every day smoker Data Anesthesia Cardiac Studies: No Data to Display
--- NOTE | 2022-03-16 10:14 | W.PM.OPSUD ---
Surgery/Procedure H&P Update DATE OF PROCEDURE: March 16, 2022 DATE H&P PERFORMED: 03/08/22 H&P UPDATE INFORMATION: I have reviewed H&P completed within last 30 days, I have examined patient prior to procedure and No changes to prior documentation PREOP DIAGNOSIS: Cervical Spondylosis with Myelopathy PLANNED PROCEDURE: Operation Date: 03/16/22 10:50 Proposed Procedures p Cervical Posterior Fusion C3-T2, C5-7 Decompression [id number]/36597/m47.12(Not Applicable) - Magnus Maya DO
[2022-03-16 10:46] LABS: Blood Urea Nitrogen 12 mg/dL (6-20); Calcium 9.9 mg/dL (8.5-10.5); Carbon Dioxide 30 mmol/L (22-29); Chloride 101 mmol/L (98-107); Creatinine Clr Calc Pharmacy 54.8167; Glomerular Filtration Rate 64.5 mL/min (90-130); Glucose 87 mg/dL (65-115); Osmolality Calculated 285 mOsm/kg (285-295); Sodium 138 mmol/L (136-145)
[2022-03-16 10:51] LABS: Anion Gap 11.3 (5-19); Potassium 4.3 mmol/L (3.5-5.1)
[2022-03-16] MEDS: vancomycin 1,000 MG SDV 1000 MG XX (13:10)
--- NOTE | 2022-03-16 14:07 | PM.OP ---
Operative Report Date of procedure: March 16, 2022 Pre-op diagnosis: Preop Diagnosis Cervical Spondylosis with Myelopathy Post-op diagnosis: same Procedure done: 1. C3-T2 posterior spine instrumentation 2. C3- T2 Posterior spine fusion 3. C4 laminectomy with partial facetectomy 4. C5 laminectomy with partial facetectomy 5. C6 laminectomy with partial facetectomy 6. C7 laminectomy with partial facetectomy 7. allograft 8. autograft from same incision Surgeon: Magnus Maya Diamond Powder Technician: Noble Alexander Diamond Powder Technician: The early childhood teacher assistant, Noble Alexander, PAC was needed for his expertise under the microscope. He was important and necessary throughout the procedure to complete in a safe and timely manner. He assisted with patient positioning prepping and draping tissue retraction suctioning of the operative field protection of the dural sac and tissue closure Estimated blood loss (mL): 50 Procedure: 1. C3-T2 posterior spine instrumentation 2. C3- T2 Posterior spine fusion 3. C4 laminectomy with partial facetectomy 4. C5 laminectomy with partial facetectomy 5. C6 laminectomy with partial facetectomy 6. C7 laminectomy with partial facetectomy 7. allograft 8. autograft from same incision Patient is brought to the operative suite after undergoing anesthesia was placed in the prone position all areas impingement well-padded. Patient was then prepped and draped normal sterile fashion. Skin incision made from C3 down to T2 level. The posterior cervical fascia was identified. Subperiosteal dissection was made out to the lateral masses of C3 down to C7. And out to the transverse processes of T1 and T2. Retractors were placed after the exposure was complete. Attention was first brought to placing the pedicle screws in T1 and T2 bilaterally. This was done by identifying the pedicles of T1 and T2 bilaterally. Using C-arm guidance. Drill was used to get the starting point followed by the gearshift probe. Followed by the pedicle feeler and then for 30 mm screws were placed. Next attention was brought to placing the lateral mass screws. Lateral mass screws were placed at C3 bilaterally, C4 bilaterally, C5 bilaterally, C6 bilaterally. This by using a 12 mm drill 20 in the upper outer corner of the lateral mass. This drilled and filled with a pedicle feeler and then size 14 mm screws were placed at each of these levels. Once all screws were placed attention was then brought brought to placing the rods. Rods were measured and cut to appropriate size. And then end caps were placed. Rods were placed bilaterally. Next attention was brought to performing the laminectomies. Starting at C7 bilateral cuts were made and the lamina and medial aspect of the facet joint with a high-speed bur. Then a Kerrison rongeur was used to take down the ligament and the remaining bone. The ligamentum flavum was taken down. The lamina then was removed and then the medial aspects of the facet joints were taken down with a Kerrison rongeur to ensure that the dura was completely exposed. There was a good repair was swelling up and as he proceeded to get to the top levels the dura was completely freed up. At C6 bilateral cuts were made and the lamina and medial aspect of the facet joint with a high-speed bur. Then a Kerrison rongeur was used to take down the ligament and the remaining bone. The ligamentum flavum was taken down. The lamina then was removed and then the medial aspects of the facet joints were taken down with a Kerrison rongeur to ensure that the dura was completely exposed. The dura was a good repair was swelling up and as he proceeded to get to the top levels the dura was completely freed up. The C5 bilateral cuts were made and the lamina and medial aspect of the facet joint with a high-speed bur. Then a Kerrison rongeur was used to take down the ligament and the remaining bone. The ligamentum flavum was taken down. The lamina then was removed and then the medial aspects of the facet joints were taken down with a Kerrison rongeur to ensure that the dura was completely exposed. The dura was a good repair was swelling up and as he proceeded to get to the top levels the dura was completely freed up. It was elected because of the degree of swelling to going to the C4 level. The C4 bilateral cuts were made and the lamina and medial aspect of the facet joint with a high-speed bur. Then a Kerrison rongeur was used to take down the ligament and the remaining bone. The ligamentum flavum was taken down. The lamina then was removed and then the medial aspects of the facet joints were taken down with a Kerrison rongeur to ensure that the dura was completely exposed. The dura was a good repair was swelling up and as he proceeded to get to the top levels the dura was completely freed up. Was brought to irrigating the wound. And then the lateral gutters were decorticated along with the facet joints. And the autograft and allograft were placed in the lateral gutters from C3 down to T2. Vancomycin powder was placed deep drain was placed and wounds were closed in layered fashion closing the skin with a nylon suture. Sterile dressings were applied patient was transferred to the PACU in stable condition.
[2022-03-16] MEDS: fentaNYL 50 mcg/mL INJ 2mL IVP ×3 (14:20→15:06)
--- NOTE | 2022-03-16 15:09 | SUR.PHASEI ---
A LINE REMOVED CATHETER INTACT. MANUAL PRESSURE HELD FOR 5 MINUTES AND PRESSURE DRESSING APPLIED. GOOD CAP REFILL TO FINGERS OF LEFT HAND.
[2022-03-16] MEDS: HYDROmorphone 1 mg/mL INJ 1 mL 0.5 MG IVP (15:20)
--- NOTE | 2022-03-16 16:42 | ANE.PACU2 ---
Inpatient post-anesthesia follow up: Airway intact: Yes Vital signs: Temperature 97.7 F Pulse Rate 95 Respiratory Rate 18 Blood Pressure 94/67 Pulse Oximetry 99 Oxygen Delivery Me thod Simple Mask Oxygen Flow Rate 6 Fraction of Inspir ed Oxygen Hydration adequate: Yes Nausea and vomiting: No Pain level: 4 Mental status: Baseline
[2022-03-16] MEDS: lactated ringers 1,000 ML 90 ML IV (16:59)
[2022-03-16] MEDS: ketorolac 30 mg/mL INJ IVP (17:00)
[2022-03-16 17:14] LABS: Glucose Point of Care 140 mg/dL (70-110)
--- NOTE | 2022-03-16 17:38 | PC.NURSE ---
Patient arrived to floor via bed post procedure asleep and awakens to verbal/painful stimuli. Patient has hi-flow oxygen mask on and was able to wean to little to o oxygen by end of shift. VSS dependent on patients pain level and anxiety. Patient is being very non-compliant and verbally loud with family in the room. This nurse asked mother and patients sister to leave so patient can calm down. Patient has medications in bag and was upset that family told this nurse that she has them in there. Patient does not want meds sent with family and is refusing having them locked but but this nurse and nurse Starr educated patient on policy and protocol of having home meds at bedside and agreed to allow medications to be locked up in pyxis. Patient kept making statements, well give them to me and i'll flush them down the toilet. I can take them when I need them with alcohol it don't matter what those people have to say. Explained to patient she will get them back at discharge and no one will touch them during her stay. Patient also keeps asking this nurse to removed hemovac she doesn't want it in her back. THis nurse continues to educate what the drain is for and why it has to stay. Patient keeps attempting to get out of bed and bed alarm is on. Room is clutter free and clean, patient has call light in reach. Hemovac patent and compressed. Meds locked in Pyxis.
[2022-03-16] MEDS: ALPRAZolam 0.5 mg Tablet 1 MG PO ×2 (18:06→20:41)
[2022-03-16] MEDS: docusate sodium 100 mg Capsule PO (18:07)
[2022-03-16] MEDS: gabapentin 300 mg Capsule 600 MG PO (20:41)
[2022-03-16] MEDS: lisinopril 2.5 mg Tablet PO (20:41)
[2022-03-16 20:52] LABS: Glucose Point of Care 251 mg/dL (70-110)
[2022-03-16] MEDS: venlafaxine ER (24HR) 75 mg Capsule PO (21:59)
[2022-03-17] VITALS (10 sets, daily range): BP systolic 107–165; BP diastolic 65–82; PULSE 79–113; RESP 12–20; TEMP 36.7–37; O2SAT 93–100
[2022-03-17] MEDS: lactated ringers 1,000 ML 90 ML IV ×2 (01:05→18:23)
[2022-03-17 06:14] LABS: Glucose Point of Care 221 mg/dL (70-110)
[2022-03-17] MEDS: ketorolac 30 mg/mL INJ IVP ×3 (06:19→23:43)
--- NOTE | 2022-03-17 07:52 | P.PN_ITS ---
Documented by User: Noble Alexander PA-C 03/17/22 07:56 Subjective Subjective: POD 1 Patient states that she is noticing improvement in the feeling and movement of her arms without pain. She denies any headaches, shortness of breath, chest pain, swallowing difficulties. Vitals/I&O/Wt Last Vital Signs Temp 98.2 F 03/17/22 04:30 Pulse 79 03/17/22 07:40 Resp 13 03/17/22 07:40 BP 141/68 03/17/22 07:40 Pulse Ox 98 03/17/22 07:40 03/16/22 03/17/22 03/17/22 22:59 06:59 14:59 Intake Total 440 / 1790 1029 / 2819 Output Total 300 / 700 470 / 1170 Balance 140 / 1090 559 / 1649 Physical Exam 2 Narrative: She is alert oriented x3 she has good general appearance normal mood and affect. Incisions clean and dry. Moving both upper extremities without difficulty. Good craps manager strength. Normal sensation to light touch moves both lower extremities feet are warm good cap refill Hemovac drain with 100 mL/18 hrs Urinary Catheter Management: Elliott: Cath Placed During This Visit: yes Reason for Continuing Indwelling Catheter: Perioperative Use in Selected Surgeri es Urinary Catheter Date of Insertion: 03/16/22 Urinary Catheter Time of Insertion: 10:55 Data : 03/16/22 10:21 A&P Assessment and plan (1) Status post cervical spinal fusion: We will discontinue the Hemovac drain and Elliott catheter today. We will have physical therapy work with stabilization and mobilization given her cervical myelopathy. Discussed discharge home tomorrow. Encouraged incentive spirometry for pulmonary toilet. Status: Acute Attestations Medical Necessity Statement*: Home tomorrow Coding Level of Care Code Acute Home Day Care Provider for Chg Fwd Diagnoses Status post cervical spinal fusion Z98.1 Documented by User: Magnus Maya DO 03/17/22 13:43 Physical Exam Urinary Catheter Management: Elliott: Cath Placed During This Visit: yes Data : 03/16/22 10:21 A&P Assessment and plan (1) Status post cervical spinal fusion: We will discontinue the Hemovac drain and Elliott catheter today. We will have physical therapy work with stabilization and mobilization given her cervical myelopathy. Discussed discharge home tomorrow. Encouraged incentive spirometry for pulmonary toilet. Patient seen and agree with above. Magnus Maya DO Status: Acute Coding Level of Care Code Acute Home Day Care Provider for Chg Fwd Diagnoses Status post cervical spinal fusion Z98.1
[2022-03-17] MEDS: atorvastatin 40 mg Tablet 20 MG PO (08:40)
[2022-03-17] MEDS: omega-3 fatty acids 1,000 mg Capsule 1000 MG PO (08:40)
[2022-03-17] MEDS: ALPRAZolam 0.5 mg Tablet 1 MG PO ×3 (08:40→19:41)
[2022-03-17] MEDS: enoxaparin 40 mg/0.4 mL Syringe SUBCUT (08:40)
[2022-03-17] MEDS: gabapentin 300 mg Capsule 600 MG PO ×3 (08:40→19:42)
[2022-03-17] MEDS: cholecalciferol (vitamin D3) 5,000 unit Tablet 5000 UNIT PO (08:41)
[2022-03-17] MEDS: docusate sodium 100 mg Capsule PO (08:41)
--- NOTE | 2022-03-17 16:24 | ECG_ITS ---
[facility] Test Date: 2022-03-17 Pat Name: Amber Franks Department: Room: 256 Gender: Female Aerial Survey Technician: : 1965 Requested By: Noble Alexander Order Number: [id number] Samuel MD: Tucker Dimas M.D. Measurements Intervals [place] Rate: 93 P: 79 [place]: 144 QRS: 56 QRSD: 81 T: 60 QT: 330 QTc: 412 Interpretive Statements SINUS RHYTHM Compared to ECG 09/22/2021 11:44:56 No significant changes Electronically Signed On 03-18-2022 20:31:09 CDT by Tucker Dimas M.D. [email or web address] [email or web address].[employer]/store/OM/[id number]
--- NOTE | 2022-03-17 18:26 | PC.NURSE ---
Patient AAOx4, VSS, weaned off Oxygen early AM. Patient continues to have C-collar in place and compliant, removed almendarez in AM and has had good UOP. Removed hemovac in early AM with no complications and incision dressing remains dry and intact. No new events during shift and no new needs. Worked well with PT and OOB to bathroom multiple times. Frequently repositions self throughout shift. Room clean and clutter free with call light in reach. Will report to oncoming nurse at shift change.
[2022-03-17] MEDS: morphine 4 mg/mL SDV 1 mL 2 MG IVP (19:42)
[2022-03-17] MEDS: lisinopril 2.5 mg Tablet PO (19:42)
[2022-03-17] MEDS: venlafaxine ER (24HR) 75 mg Capsule PO (19:42)
[2022-03-17 20:56] LABS: Glucose Point of Care 197 mg/dL (70-110)
[2022-03-18] VITALS (12 sets, daily range): BP systolic 108–158; BP diastolic 70–89; PULSE 60–115; RESP 12–18; TEMP 36.4–36.9; O2SAT 90–95
[2022-03-18] MEDS: lactated ringers 1,000 ML 90 ML IV (04:40)
[2022-03-18] MEDS: morphine 4 mg/mL SDV 1 mL 2 MG IVP ×2 (05:26→08:16)
[2022-03-18 06:39] LABS: Glucose Point of Care 111 mg/dL (70-110)
[2022-03-18] MEDS: acetaminophen 325 mg Tablet 650 MG PO ×2 (07:23→14:31)
[2022-03-18] MEDS: ALPRAZolam 0.5 mg Tablet 1 MG PO ×3 (08:16→20:13)
[2022-03-18] MEDS: enoxaparin 40 mg/0.4 mL Syringe SUBCUT (08:16)
[2022-03-18] MEDS: atorvastatin 40 mg Tablet 20 MG PO (08:17)
[2022-03-18] MEDS: gabapentin 300 mg Capsule 600 MG PO ×3 (08:17→20:14)
[2022-03-18] MEDS: cholecalciferol (vitamin D3) 5,000 unit Tablet 5000 UNIT PO (08:18)
[2022-03-18] MEDS: omega-3 fatty acids 1,000 mg Capsule 1000 MG PO (08:18)
[2022-03-18] MEDS: docusate sodium 100 mg Capsule PO ×2 (08:18→17:32)
--- NOTE | 2022-03-18 08:34 | PM.PN ---
Subjective Subjective: Having some pain control issues. She has difficulty getting up and down out of bed. At this point she does not have help at home. Vitals/I&O/Wt Last Vital Signs Temp 98.2 F 03/18/22 08:12 Pulse 105 H 03/18/22 08:12 Resp 18 03/18/22 08:16 BP 158/89 03/18/22 08:12 Pulse Ox 91 03/18/22 08:12 03/17/22 03/18/22 03/18/22 22:59 06:59 14:59 Intake Total 400 / 1866.5 1075.5 / 2942.0 Balance 400 / 1866.5 1075.5 / 2942.0 Physical Exam Narrative: Patient's hands are getting stronger. Urinary Catheter Management: Elliott: Cath Placed During This Visit: yes, but has since been removed by the nurse Reason for Continuing Indwelling Catheter: Decision to DC Catheter Urinary Catheter Date of Insertion: 03/16/22 Urinary Catheter Time of Insertion: 10:55 Date Urinary Catheter Removed: 03/17/22 Time Urinary Catheter Discontinued: 09:49 Data : 03/16/22 10:21 A&P Assessment and plan (1) Status post cervical spinal fusion: Patient does not have any help at home. She cannot be discharged until she either gets placement to a rehab facility. Or she gets home health to help her at home. Status: Acute Attestations Medical Necessity Statement*: needs help at home or placement to a rehab facility Coding Level of Care Code Acute Electron Beam Photo Mask Technician for Edna Abad Diagnoses Status post cervical spinal fusion Z98.1
[2022-03-18] MEDS: latanoprost 0.005% Op Soln 2.5 mL Btl 1 DROP OPHTHALMIC (09:05)
--- NOTE | 2022-03-18 12:57 | ECG_ITS ---
[facility] Test Date: 2022-03-18 Pat Name: Amber Franks Department: Room: 256 Gender: Female Metal Temperer: : 1965 Requested By: Magnus Odonnell Order Number: [id number] Samuel MD: Tucker Dimas M.D. Measurements Intervals [place] Rate: 106 P: 79 [place]: 138 QRS: 53 QRSD: 78 T: 63 QT: 317 QTc: 422 Interpretive Statements SINUS TACHYCARDIA MINIMAL VOLTAGE CRITERIA FOR LVH, CONSIDER NORMAL VARIANT [MEETS CRITERIA IN ONE OF: R(aVL), S(V1), R(V5), R(V5/V6)+S(V1)] Compared to ECG 03/17/2022 17:28:38 Sinus rhythm no longer present Electronically Signed On 03-18-2022 20:26:29 CDT by Tucker Dimas M.D. [email or web address] unitMediameeting[facility].[employer]/store/OM/[id number]
--- NOTE | 2022-03-18 15:28 | CTR_ITS ---
PROCEDURE INFORMATION: Exam: CTA Chest With Contrast Exam date and time: 03/18/2022 5:55 PM Age: 56 years old Clinical indication: Other: Unexplained sinus tachycardia, recent surgery; Prior surgery; Surgery date: 3-7 days post-operative; Surgery type: C-spine TECHNIQUE: Imaging protocol: Computed tomographic angiography of the chest with contrast. 3D rendering (Not supervised by radiologist): MIP and/or 3D reconstructed images were created by the technologist. Radiation optimization: All CT scans at this facility use at least one of these dose optimization techniques: automated exposure control; mA and/or kV adjustment per patient size (includes targeted exams where dose is matched to clinical indication); or iterative reconstruction. Contrast material: OMNI 350; Contrast volume: 67 ml; Contrast route: INTRAVENOUS (IV); COMPARISON: 1. CT chest wo con [id number] 09/08/2020 1:19 PM 2. MR thoracic spine wo/w [id number] 11/09/2020 8:27 AM RADIATION DOSE METRICS: Total DLP (mGy-cm): 405.29 FINDINGS: Pulmonary arteries: There is no evidence of filling defects within the pulmonary arterial circulation to suggest pulmonary embolism. Aorta: There is no thoracic aortic aneurysm or dissection. There is ectasia of the ascending thoracic aorta which measures 3.8 cm not significantly changed. Lungs: There is centrilobular and bullous emphysema not significantly changed from 09/08/2020. Nodular scarring in the left upper lobe with associated calcifications not significantly changed compared with 09/08/2020. There is a cavitary right upper lobe mass posterior medially at the right apex with thick nodular wall. This mass is worrisome for malignancy. The mass appears slightly smaller than on the previous examination with increased cavitation in the inferior medial portion. This could represent a response to therapy. There is some partial atelectasis in the posterior left lower lobe. There is mild dependent atelectasis at the left lung base. Pleural spaces: There is a small left pleural effusion. Heart: Unremarkable. No cardiomegaly. No pericardial effusion. Lymph nodes: There are small paratracheal lymph nodes not significantly changed. No gross adenopathy is identified. Bones/joints: There are postsurgical changes in the lower cervical spine which appear to be recent but not fully included on this exam. There is moderate wedging of superior endplate of T7 not significantly changed. There is also compression deformity of the inferior endplate of L1 also not significantly changed. There are multiple old healed rib fractures. Soft tissues: Unremarkable. CT/CT angio chest PE protcl [id number] IMPRESSION: 1. Cavitary right apical mass with some improvement. The appearance is worrisome for malignancy. Please correlate with the results of prior studies and biopsy which are not presently available. 2. No evidence of pulmonary embolism. 3. Small left pleural effusion 4. Mild left basilar atelectasis.
[2022-03-18 15:38] LABS: Basophils # 0.1 10^3/uL (0.0-0.1); Basophils % 0.4 %; Eosinophils # 0.1 10^3/uL (0.0-0.8); Eosinophils % 0.7 %; Hematocrit 35.8 % (37.0-47.0); Hemoglobin 11.3 g/dL (11.5-15.3); Lymphocytes # 1.8 10^3/uL (0.8-4.8); Lymphocytes % 12.4 %; Mean Corpuscular HGB Conc 31.6 g/dL (30.0-36.0); Mean Corpuscular Hemoglobin 28.3 pg (28.0-34.0); Mean Corpuscular Volume 89.5 fl (81-99); Monocytes # 1.6 10^3/uL (0.2-0.9); Monocytes % 11.3 %; Neutrophils # 10.66 10^3/uL (1.8-7.7); Neutrophils % 74.7 %; Nucleated Red Blood Cells % 0 %; Platelet Count 377 10^3/cmm (130-400); Red Cell Distribution Width 15.6 % (12.1-15.1); White Blood Count 14.3 10^3/uL (4.0-10.0)
--- NOTE | 2022-03-18 15:39 | P.HP_ITS ---
Providers/Chief Complaint Admitting Physician: Magnus Maya DO Primary Care Provider: Dasia Sena MD Chief Complaint: cervical spondylosis History of Present Illness 56-year-old lady who underwent cervical laminectomy and fusion on Saturday, reportedly an otherwise uneventful hospital course, but this morning was noted to be anxious, and with sinus tachycardia today going up as high as into 120s, due to some concern on telemetry of ST segment changes, twelve-lead EKG was obtained which showed sinus tachycardia 106 minimal voltage criteria for LVH. She notes having neck pain after surgery, denies other complaints. Currently slightly groggy after receiving Ativan, but wakes up to voice, provides history. She denies being short of breath, denies cough. Denies chest pain or pressure. Denies headache, nausea or vomiting. Reports no other GI, urinary nonjudgmentally complaints. Asking her if she has had issues with her heart beating fast in the past, states maybe once or twice. Denies taking any beta- blockers at home. Denies taking tramadol, states in fact she is allergic to it (due to history of alpha-1 antitrypsin deficiency). Reports she smokes 1 pack of cigarettes per day. Denies any alcohol or recreational drug use. Prescription with surgery she had minimal blood loss during surgery. On SCDs and Lovenox for DVT prophylaxis. Review of Systems Const: Denies: fever(s), chills, body aches or malaise Eyes: Denies: change in vision Card: Denies: chest pain, edema, pre-syncope or dyspnea on exertion Resp: Denies: dyspnea, productive cough, change in phlegm color or hemoptysis GI: Denies: abdominal pain, nausea, vomiting, diarrhea, constipation, hem atochezia or melena : Denies: flank pain, urinary frequency or hematuria Musc: Reports: neck pain; Denies: back pain, joint swelling or joint redness Skin/Breast: Denies: rash or new lesions Neuro: Denies: headache(s), numbness in extremities, weakness in extremities, dizziness, confusion or seizure-like activity Psych: Reports: anxiety Endo: Denies: polyuria or polydipsia Lencho/Lymph: Denies: easy bleeding or tender lymph nodes All/Imm: Denies: urticaria or tongue swelling Medications/Allergies Home Medications Medication Instructions Recorded Confirmed Last Taken Type cholecalciferol (vitamin D3) 125 125 mcg PO DAILY 06/27/21 03/17/22 03/15/22 History mcg (5,000 unit) capsule gabapentin 600 mg tablet 600 mg PO TID 06/27/21 03/17/22 03/16/22 History omega-3 acid ethyl esters 1 gram 1 cap PO DAILY 06/27/21 03/17/22 03/15/22 History capsule venlafaxine 75 mg capsule,extended 75 mg PO DAILY 06/27/21 03/17/22 03/15/22 History release 24 hr latanoprost 0.005 % eye drops 1 drp OPHTHALMIC (EYE) DAILY 09/05/21 03/17/22 03/15/22 History alprazolam 1 mg tablet (Xanax) 1 mg PO TID 09/22/21 03/17/22 03/16/22 History lisinopril 2.5 mg tablet 2.5 mg PO BEDTIME 09/22/21 03/17/22 03/15/22 History Physical Therapy- Page #1 ea 12/26/21 03/17/22 Unknown Rx Rehabilitation pravastatin 20 mg tablet 20 mg PO DAILY 03/13/22 03/17/22 03/02/22 History hydrocodone 5 mg-acetaminophen 325 1 - 2 tab PO .Q4-6H PRN 7 Days #40 03/15/22 03/17/22 03/16/22 Rx mg tablet tab ondansetron HCl 4 mg tablet 4 mg PO Q8H PRN 03/17/22 03/17/22 Unknown History tramadol 50 mg tablet 50 - 100 mg PO Q6H PRN 03/17/22 03/17/22 Unknown History Allergies Allergy/AdvReac Type Severity Reaction Status Date / Time tramadol Allergy Unknown Unknown Unverified 03/18/22 15:29 quinine Allergy ALGY-Rash Verified 03/13/22 13:09 PFSH Acute PFSH: Medical History Cvioy-6-[id number] deficiency COPD (chronic obstructive pulmonary disease) Hypertension Smoking addiction Surgical History Previous back surgery Family History Other No significant family history Social History Smoking and tobacco status: current every day smoker Alcohol intake: never Substance/Drug Use: never Marital status: Vitals/I&O/Wt Last Vital Signs Temp 98.2 F 03/18/22 08:12 Pulse 106 H 03/18/22 13:07 Resp 12 03/18/22 11:15 BP 135/82 03/18/22 13:07 Pulse Ox 91 03/18/22 13:07 03/18/22 03/18/22 03/18/22 06:59 14:59 22:59 Intake Total 1075.5 / 2942.0 Balance 1075.5 / 2942.0 Physical Exam Const: COMMON NORMALS: alert GENERAL APPEARANCE: cooperative ORIENTATION/CONSCIOUSNESS: Yes awake OTHER: Somnolent after xanax, wakes up to voice HENMT: COMMON NORMALS: normocephalic, EAC's normal, Normal external nose present and moist oral mucous membranes HEAD & SCALP: normocephalic NOSE: Normal external nose present EXTERNAL AUDITORY CANAL: EAC's normal Neck/C-Spine: OTHER: Cervical immobilizer Chest: CHEST: Yes Symmetrical chest wall rise Resp: COMMON NORMALS: clear to auscultation bilaterally AUSCULTATION: clear to auscultation bilaterally Cardio: COMMON NORMALS: regular rate, regular rhythm and No murmurs present (Cardio) RATE: tachycardic RHYTHM: regular rhythm GI: COMMON NORMALS: Normal to inspection, nondistended, normoactive bowel sounds present, Soft to palpation and non-tender PALPATION: Yes Soft to palpation Extremity: COMMON NORMALS: no pedal edema Neuro: COMMON NORMALS: moves all extremities SENSORIUM/ORIENTATION: Yes somnolent Skin: COMMON NORMALS: no wounds RASHES: no rashes Urinary Catheter Management: Elliott: Cath Placed During This Visit: yes, but has since been removed by the nurse Reason for Continuing Indwelling Catheter: Decision to DC Catheter Urinary Catheter Date of Insertion: 03/16/22 Urinary Catheter Time of Insertion: 10:55 Date Urinary Catheter Removed: 03/17/22 Time Urinary Catheter Discontinued: 09:49 Data : 03/18/22 15:25 03/16/22 10:21 A&P Assessment and plan (1) Sinus tachycardia: Sinus tachycardia this morning, also having some anxiety, received morphine dose, later on received her scheduled Xanax. She has been afebrile, but requested CBC, and appears to have leukocytosis of 14,000. Unclear whether this may be postoperative, however, with leukocytosis and sinus tachycardia infection and sepsis is possible. Requested blood culture, lactic acid, start empiric antibiotic coverage with ceftriaxone, vancomycin. Discussed with orthopedics, wound has been looking good. At this time not suspected to be source of infection. No additional imaging wanted at this time. Continue reassessments. Otherwise saturation placed in the lower end of 90s, 91% on room air. Sinus tachycardia. Recent surgery. He is on prophylactic Lovenox, SCDs, but will additionally assess as discussed with her with CT angiogram for PE. Troponin series Check COVID PCR Check UA. Check chemistry, magnesium. Check TSH In reviewing her medications, has tramadol listed, consideration of withdrawal from medication, but she states she is allergic to tramadol and does not take it at all at home. Added to list of allergies. Additionally noted hydrocodone at home, resume. She smokes 1 pack/day, admitting patch, lozenges as needed. Status: Acute (2) Status post cervical spinal fusion: Additional assessment as above place in observation for further postoperative sinus tachycardia. Some hemoglobin decreased down to 11.3. She is on Lovenox and SCD DVT prophylaxis. Hemovac and Elliott were discontinued 03/17. Continue pain control. Mobilization. Disposition planning and arrangements. Status: Acute (3) Hyperglycemia: No history of diabetes. Change to consistent carbohydrate diet. Check A1c. Status: Acute (4) Smoking addiction: She smokes 1 pack/day. Add nicotine patch, and as needed lozenges. Encourage smoking cessation. Status: Acute Plan HTN: Does not recall taking beta-blockers COPD: Not in exacerbation at the moment Anxiety: Change Xanax to as needed as she takes it at home up to 3-4 tabs in a day. Alpha-1 antitrypsin deficiency Attestations Medical Necessity Statement*: Continue admission for assessment of unexplained sinus tachycardia after cervical laminectomy and fusion. Coding Level of Care Code Acute Assistant Manager Airside Operations for Edna Abad Diagnoses Sinus tachycardia R00.0 Status post cervical spinal fusion Z98.1 Smoking addiction F17.200 Hyperglycemia R73.9
[2022-03-18 16:00] LABS: Alanine Aminotransferase 7 U/L (0-33); Alkaline Phosphatase 87 IU/L (35-105); Anion Gap 11.7 (5-19); Aspartate Amino Transferase 18 U/L (0-32); Blood Urea Nitrogen 9 mg/dL (6-20); Calcium 8.7 mg/dL (8.5-10.5); Carbon Dioxide 26 mmol/L (22-29); Chloride 101 mmol/L (98-107); Globulin 2.6 g/dL (1.3-4.6); Glomerular Filtration Rate 127.2 mL/min (90-130); Glucose 106 mg/dL (65-115); Magnesium 1.5 mg/dL (1.7-2.3); Osmolality Calculated 279 mOsm/kg (285-295); Potassium 3.7 mmol/L (3.5-5.1); Sodium 135 mmol/L (136-145); Total Bilirubin 0.2 mg/dL (0.15-1.2); Total Protein 5.6 g/dL (6.6-8.7)
[2022-03-18] MEDS: cefTRIAXone 2,000 MG in sodium chloride 0.9% (plus) 50 ML 100 MG IV (16:15)
[2022-03-18] MEDS: nicotine 21 mg Patch 1 PATCH TRANSDERMA (16:16)
[2022-03-18 16:24] LABS: Troponin(5th) Baseline 18 ng/L (0-10)
[2022-03-18] MEDS: magnesium sulfate premix 2 GM/50 ML PIGGYBACK IV (16:27)
[2022-03-18 16:43] LABS: Thyroid Stimulating Hormone 0.17 uIU/mL (0.27-4.20)
--- NOTE | 2022-03-18 17:27 | ECG_ITS ---
[facility] Test Date: 2022-03-18 Pat Name: Amber Franks Department: Room: 256 Gender: Female Weblogic Administrator: : 1965 Requested By: Efra Lyle Order Number: [id number] Samuel MD: Tucker Dimas M.D. Measurements Intervals [facility] Rate: 99 P: 80 VA: 141 QRS: 60 QRSD: 86 T: 66 QT: 335 QTc: 431 Interpretive Statements SINUS RHYTHM Compared to ECG 03/18/2022 13:02:37 Sinus tachycardia no longer present Electronically Signed On 03-18-2022 20:32:59 CDT by Tucker Dimas M.D. [id number]
[2022-03-18] MEDS: vancomycin 1,000 MG in sodium chloride 0.9% 250 ML 250 MG IV (17:32)
[2022-03-18] MEDS: iohexol 350 mg/mL 100 mL Btl IV (17:59)
[2022-03-18 18:10] LABS: Lactic Sepsis W/Reflex 0.7 mmol/L (0.5-2.2)
[2022-03-18 18:12] LABS: Troponin 5 2HR 17.51 ng/L (0-10)
[2022-03-18 18:21] LABS: Troponin 5 2HR Delta -0.49 ABS# (0-10)
[2022-03-18] MEDS: HYDROcodone-acetaminophen 5-325 mg Tablet 1 TAB PO (20:13)
[2022-03-18] MEDS: venlafaxine ER (24HR) 75 mg Capsule PO (20:13)
[2022-03-18 23:11] LABS: Troponin 5 6HR 18.64 ng/L (0-10)
[2022-03-18 23:23] LABS: Troponin 5 6HR Delta 0.64 ng/L (0-12)
[2022-03-19] VITALS (7 sets, daily range): BP systolic 101–114; BP diastolic 69–77; PULSE 104–114; RESP 16–18; TEMP 36.7–37.1; O2SAT 90–94
[2022-03-19 00:52] LABS: Adenovirus Not Detected (NOT DETECT); Chlamydia Pneumoniae Not Detected (NOT DETECT); Coronavirus 229E,HKU1,NL63,OC4 Not Detected (NOT DETECT); Human Metapneumovirus Not Detected (NOT DETECT); Human Rhinovirus/Enterovirus Not Detected (NOT DETECT); Influenza A Not Detected (NOT DETECT); Influenza A H1 Not Detected (NOT DETECT); Influenza A H1-2009 Not Detected (NOT DETECT); Influenza A H3 Not Detected (NOT DETECT); Influenza B Not Detected (NOT DETECT); Mycoplasma Pneumoniae Not Detected (NOT DETECT); Parainfluenza Virus Type 1 Not Detected (NOT DETECT); Parainfluenza Virus Type 2 Not Detected (NOT DETECT); Parainfluenza Virus Type 3 Not Detected (NOT DETECT); Parainfluenza Virus Type 4 Not Detected (NOT DETECT); Respiratory Syncytial Virus A Not Detected (NOT DETECT); Respiratory Syncytial Virus B Not Detected (NOT DETECT); SARS-COV-2 Not Detected (NOT DETECT)
[2022-03-19] MEDS: HYDROcodone-acetaminophen 5-325 mg Tablet 1 TAB PO ×4 (01:38→20:53)
[2022-03-19 01:39] LABS: Add Urine Microscopic? NO; Charge for UA Resulting for Rev
[2022-03-19 01:49] LABS: Bilirubin Urine Neg (Negative); Blood Urine Neg (Negative); Glucose Urine UA Norm (Normal); Ketones Urine Negative (Negative); Leukocyte Esterase Urine Negative (Negative); Nitrate Urine Negative (Negative); Protein Urine Neg (Negative); Sulfosalicylic Acid Urine Negative (Negative); Urine Appearance Clear (CLEAR); Urine Color Straw (Yellow); Urobilinogen Urine Norm (Negative); pH Urine 8 (5-7)
[2022-03-19] MEDS: cefTRIAXone 2,000 MG in sodium chloride 0.9% (plus) 50 ML 100 MG IV ×2 (03:23→14:10)
[2022-03-19 04:40] LABS: Basophils # 0.1 10^3/uL (0.0-0.1); Basophils % 0.4 %; Eosinophils # 0.2 10^3/uL (0.0-0.8); Eosinophils % 1.1 %; Hematocrit 33.3 % (37.0-47.0); Hemoglobin 10.9 g/dL (11.5-15.3); Lymphocytes # 1.5 10^3/uL (0.8-4.8); Lymphocytes % 11.3 %; Mean Corpuscular HGB Conc 32.7 g/dL (30.0-36.0); Mean Corpuscular Volume 85.6 fl (81-99); Mean Platelet Volume 8.9 fL (7.4-10.4); Monocytes # 1.5 10^3/uL (0.2-0.9); Monocytes % 11.5 %; Neutrophils % 75.3 %; Nucleated Red Blood Cells % 0 %; Platelet Count 366 10^3/cmm (130-400); Red Blood Count 3.89 10^6/uL (4.1-5.3); Red Cell Distribution Width 15.6 % (12.1-15.1); White Blood Count 13.3 10^3/uL (4.0-10.0)
[2022-03-19 04:53] LABS: Estmated Average Glucose 131; Hemoglobin A1C 6.2 % (4.0-6.0)
[2022-03-19 04:55] LABS: Alanine Aminotransferase < 5 U/L (0-33); Albumin Level 2.9 g/dL (3.5-5.2); Alkaline Phosphatase 85 IU/L (35-105); Anion Gap 13.7 (5-19); Aspartate Amino Transferase 17 U/L (0-32); Blood Urea Nitrogen 10 mg/dL (6-20); Calcium 8.4 mg/dL (8.5-10.5); Carbon Dioxide 26 mmol/L (22-29); Chloride 98 mmol/L (98-107); Globulin 2.7 g/dL (1.3-4.6); Glucose 156 mg/dL (65-115); Osmolality Calculated 280 mOsm/kg (285-295); Potassium 3.7 mmol/L (3.5-5.1); Sodium 134 mmol/L (136-145); Total Bilirubin 0.2 mg/dL (0.15-1.2); Total Protein 5.6 g/dL (6.6-8.7)
--- NOTE | 2022-03-19 07:44 | PM.PN ---
Subjective Subjective: POD 3 Patient resting comfortably. Reports improvement of both arms with feeling and movement. Denies any swallowing difficulties. Denies any chest pain or shortness of breath. She has been up mobilizing with physical therapy assistance. Vitals/I&O/Wt Last Vital Signs Temp 98.1 F 03/19/22 04:22 Pulse 104 H 03/19/22 04:22 Resp 18 03/19/22 04:22 BP 101/70 03/19/22 04:22 Pulse Ox 90 03/19/22 04:22 03/18/22 03/19/22 03/19/22 22:59 06:59 14:59 Intake Total 1830 / 1830 290 / 2120 Output Total 600 / 600 Balance 1830 / 1830 -310 / 1520 Physical Exam Narrative: She is alert oriented x3 she has good general appearance normal mood and affect.? Incisions clean and dry.? Moving both upper extremities without difficulty.? Good server software engineer strength.? Normal sensation to light touch moves both lower extremities feet are warm good cap refill Urinary Catheter Management: Elliott: Cath Placed During This Visit: yes, but has since been removed by the nurse Reason for Continuing Indwelling Catheter: Decision to DC Catheter Urinary Catheter Date of Insertion: 03/16/22 Urinary Catheter Time of Insertion: 10:55 Date Urinary Catheter Removed: 03/17/22 Time Urinary Catheter Discontinued: 09:49 Data : 03/19/22 04:30 03/19/22 04:30 Micro: Microbiology 03/18/22 17:22 Blood Culture - Preliminary Blood SPECIMEN COLLECTED 03/18/22 17:18 Blood Culture - Preliminary Blood SPECIMEN COLLECTED A&P Assessment and plan (1) Cervical spondylosis with myelopathy: We will change dressing today with Silverlon island dressing applied. Continue to mobilize with physical therapy. I encouraged incentive spirometry for pulmonary toilet. We will have social service manager evaluate for placement or home health care. Status: Acute (2) Status post cervical spinal fusion: Status: Acute Attestations Medical Necessity Statement*: awaiting Placement or [facility] Coding Level of Care Code Acute Yarder Engineer for Edna Abad Diagnoses Cervical spondylosis with myelopathy M47.12 Status post cervical spinal fusion Z98.1
[2022-03-19] MEDS: docusate sodium 100 mg Capsule PO ×2 (08:27→17:14)
[2022-03-19] MEDS: ALPRAZolam 0.5 mg Tablet 1 MG PO ×2 (08:27→20:54)
[2022-03-19] MEDS: atorvastatin 40 mg Tablet 20 MG PO (08:27)
[2022-03-19] MEDS: omega-3 fatty acids 1,000 mg Capsule 1000 MG PO (08:27)
[2022-03-19] MEDS: cholecalciferol (vitamin D3) 5,000 unit Tablet 5000 UNIT PO (08:27)
[2022-03-19] MEDS: enoxaparin 40 mg/0.4 mL Syringe SUBCUT (08:28)
[2022-03-19] MEDS: latanoprost 0.005% Op Soln 2.5 mL Btl 1 DROP OPHTHALMIC (08:28)
[2022-03-19] MEDS: gabapentin 300 mg Capsule 600 MG PO ×3 (08:28→20:53)
[2022-03-19] MEDS: nicotine 21 mg Patch 1 PATCH TRANSDERMA (08:31)
--- NOTE | 2022-03-19 09:58 | PC.CHAP ---
Pastoral Care Encounter/Spiritual Assessment Type of Contact [] Declined furnace converter visit [] Patient/Family/Request visit [] Outpatient visit [] Follow-up visit [] Physician referral x [] Code/Alert [x] Routine visit [] Staff referral [] Actively dying [] Patient sleeping [] Family support [] [] Out of room [] Palliative care [] [] Receiving care in room [] Pre-surgical visit [] Trauma [] Long length of stay [] ICU visit [] Other: Relational/Emotional Strength [x] Patient feels connected with others/family/visitors/staff [] Distress [] Loneliness/isolation [] Abandonment Spirituality of Patient [x] Person of Diane [] Attends Yazidi of their Diane [x] Believes in Prayer [] Reads Bible or Baptism materials [] There are Spiritual issues to be addressed Principal Electrical Engineer Interventions [x] Prayer [x] Active listening [] Non-anxious presence [x] Spiritual/emotional support [] Crisis/trauma care [] Spiritual counseling [] Bereavement support [] Provided bereavement packet [] Provided Bible/devotional materials [] Provided toy/stuffed animal, coloring book to patient or family member [] Provided Communion [] Anointing/[place] [] Salvation [x] Completed spiritual assessment [] Other: Impact on Illness or Injury [] Angry [] Fearful [] Anxious [] Often cries [] Exhaustion [] Unable to work [] Unable to attend jewish [] Unable to walk/stand [] Unable to read [] Unable to drive [] Unable to eat/drink [] Unable to sleep [] Unable to be with family [] Patient intubated [] Other: Summary Time spent with patient 10 min
--- NOTE | 2022-03-19 10:54 | PC.NURSE ---
In room to give patient pain medication and patient is sound asleep. Even while talking with the patient in bed onw who is hard of hearing patient continues to appear to be asleep.
--- NOTE | 2022-03-19 11:08 | PC.SOCIAL ---
IMM Update Pg 2 of IMM updated and reviewed w/ patient and had patient to sign. Copy provided to patient and Copy placed in chart.
--- NOTE | 2022-03-19 13:16 | PM.PN ---
Subjective Subjective: Patient with tachycardia yesterday and given 2 g of magnesium sulfate. Patient denies palpitations today but admits to them yesterday. She states she has a history of CHF, COPD but no coronary artery disease. Patient smokes 1 pack/day. She does not drink alcohol at all. 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 Vitals/I&O/Wt Last Vital Signs Temp 98.1 F 03/19/22 12:00 Pulse 106 H 03/19/22 12:00 Resp 16 03/19/22 12:00 BP 104/70 03/19/22 12:00 Pulse Ox 93 03/19/22 12:00 03/18/22 03/19/22 03/19/22 22:59 06:59 14:59 Intake Total 1830 / 0 290 / 2120 Output Total 600 / 600 Balance 1830 / 1830 -310 / 1520 Physical Exam Narrative: General well-developed well-nourished thin female in no acute cardiopulmonary distress she is alert artery pleasant CV regular rate and rhythm Lungs clear to auscultation bilaterally Abdomen positive bowel sounds soft nontender Calves no tenderness cords pedal edema Skin warm and dry Mood and affect normal. Urinary Catheter Management: Elliott: Cath Placed During This Visit: yes, but has since been removed by the nurse Reason for Continuing Indwelling Catheter: Decision to DC Catheter Urinary Catheter Date of Insertion: 03/16/22 Urinary Catheter Time of Insertion: 10:55 Date Urinary Catheter Removed: 03/17/22 Time Urinary Catheter Discontinued: 09:49 Data : 03/19/22 04:30 03/19/22 04:30 Micro: Microbiology 03/18/22 17:22 Blood Culture - Preliminary Blood SPECIMEN COLLECTED 03/18/22 17:18 Blood Culture - Preliminary Blood SPECIMEN COLLECTED A&P Assessment and plan (1) Smoking addiction: Continue nicotine patch Status: Acute (2) Sinus tachycardia: Replace magnesium and potassium. Check free T4 Status: Acute (3) Spondylosis of cervical spine with myelopathy: Improved post surgery Status: Acute (4) Hypomagnesemia: Replace Status: Acute (5) Hypokalemia: Replace Status: Acute (6) Low TSH level: Free T4 Status: Acute Attestations Medical Necessity Statement*: Patient remains in the hospital for potassium and magnesium replacement. Anticipate able to discharge potentially tomorrow Time Spent in Patient Care: Greater than 35 minutes Coding Level of Care Code Acute Quality Control Microbiology Supervisor for Chg Fwd Diagnoses Smoking addiction F17.200 Sinus tachycardia R00.0 Spondylosis of cervical spine with myelopathy M47.12 Hypomagnesemia E83.42 Hypokalemia E87.6 Low TSH level R79.89
--- NOTE | 2022-03-19 13:45 | P.PN_ITS ---
Subjective Subjective: 56-year-old female with history of Duarte cirrhosis comes in with ascites she also had bright red blood per rectum and a dropping hematocrit evaluated by EGD and colonoscopy overnight which were unremarkable except for mild nonbleeding varices and present but not bleeding hemorrhoids. Patient states her abdomen is bloated. She denies ever being a heavy alcohol user. Vitals/I&O/Wt Last Vital Signs Temp 98.1 F 03/19/22 12:00 Pulse 106 H 03/19/22 12:00 Resp 16 03/19/22 12:00 BP 104/70 03/19/22 12:00 Pulse Ox 93 03/19/22 12:00 03/18/22 03/19/22 03/19/22 22:59 06:59 14:59 Intake Total 1830 / 1830 290 / 2120 Output Total 600 / 600 Balance 1830 / 1830 -310 / 1520 Physical Exam Narrative: General well-developed chronically ill-appearing female with abdominal distention. CV regular rate and rhythm Lungs crackles in both bases Abdomen distended soft nontender Calves no tenderness or pretibial edema Mentation alert and oriented x3 Skin warm and dry however there are some spider telangiectasias over the chest Urinary Catheter Management: Elliott: Cath Placed During This Visit: yes, but has since been removed by the nurse Reason for Continuing Indwelling Catheter: Decision to DC Catheter Urinary Catheter Date of Insertion: 03/16/22 Urinary Catheter Time of Insertion: 10:55 Date Urinary Catheter Removed: 03/17/22 Time Urinary Catheter Discontinued: 09:49 Data : 03/19/22 04:30 03/19/22 04:30 Micro: Microbiology 03/18/22 17:22 Blood Culture - Preliminary Blood SPECIMEN COLLECTED 03/18/22 17:18 Blood Culture - Preliminary Blood SPECIMEN COLLECTED Coding Level of Care Code Acute Instrumentation And Controls Designer for Edna Abad
[2022-03-19] MEDS: magnesium oxide 400 mg tablet PO ×2 (14:11→17:14)
[2022-03-19] MEDS: potassium chloride ER 20 mEq Tablet 40 MEQ PO ×2 (14:11→17:14)
[2022-03-19] MEDS: metoprolol succinate ER (24 HR) 25 mg Tablet 12.5 MG PO (14:11)
[2022-03-19] MEDS: vancomycin 1,000 MG in sodium chloride 0.9% 250 ML 250 MG IV (15:55)
[2022-03-19] MEDS: morphine 4 mg/mL SDV 1 mL 2 MG IVP (18:37)
[2022-03-19] MEDS: venlafaxine ER (24HR) 37.5 mg Capsule PO (20:53)
[2022-03-20] VITALS: BP 102/68; PULSE 95; RESP 16; TEMP 36.6; O2SAT 90
[2022-03-20] MEDS: cefTRIAXone 2,000 MG in sodium chloride 0.9% (plus) 50 ML 100 MG IV (03:16)
[2022-03-20] MEDS: HYDROcodone-acetaminophen 5-325 mg Tablet 1 TAB PO (03:54)
[2022-03-20 04:00] LABS: Basophils # 0.1 10^3/uL (0.0-0.1); Basophils % 0.5 %; Eosinophils # 0.5 10^3/uL (0.0-0.8); Eosinophils % 4.3 %; Hematocrit 37.4 % (37.0-47.0); Hemoglobin 11.4 g/dL (11.5-15.3); Lymphocytes # 1.6 10^3/uL (0.8-4.8); Lymphocytes % 14.6 %; Mean Corpuscular HGB Conc 30.5 g/dL (30.0-36.0); Mean Corpuscular Hemoglobin 28.4 pg (28.0-34.0); Monocytes # 1.4 10^3/uL (0.2-0.9); Monocytes % 13.1 %; Neutrophils # 7.21 10^3/uL (1.8-7.7); Neutrophils % 67.1 %; Nucleated Red Blood Cells % 0 %; Platelet Count 417 10^3/cmm (130-400); Red Blood Count 4.02 10^6/uL (4.1-5.3); Red Cell Distribution Width 15.6 % (12.1-15.1); White Blood Count 10.7 10^3/uL (4.0-10.0)
[2022-03-20 04:19] LABS: Alanine Aminotransferase 7 U/L (0-33); Albumin Level 2.8 g/dL (3.5-5.2); Alkaline Phosphatase 86 IU/L (35-105); Anion Gap 13.7 (5-19); Aspartate Amino Transferase 12 U/L (0-32); Blood Urea Nitrogen 12 mg/dL (6-20); Carbon Dioxide 24 mmol/L (22-29); Chloride 103 mmol/L (98-107); Globulin 3.3 g/dL (1.3-4.6); Glomerular Filtration Rate 86.2 mL/min (90-130); Glucose 101 mg/dL (65-115); Osmolality Calculated 282 mOsm/kg (285-295); Potassium 4.7 mmol/L (3.5-5.1); Sodium 136 mmol/L (136-145); Total Bilirubin 0.2 mg/dL (0.15-1.2); Total Protein 6.1 g/dL (6.6-8.7)
[2022-03-20 04:57] LABS: Magnesium 1.9 mg/dL (1.7-2.3)
[2022-03-20 05:20] LABS: Free T4 Free Thyroxine 0.89 ng/dL (0.82-1.77)
[2022-03-20 05:39] VITALS: PULSE 94
[2022-03-20 05:41] VITALS: BP 104/70; PULSE 89; RESP 16; TEMP 36.6; O2SAT 90
--- NOTE | 2022-03-20 08:13 | P.DS_ITS ---
Discharge Providers Date of Admission: 03/16/22 13:31 Date of Discharge: March 20, 2022 Attending Provider at Admission: Magnus Maya DO Attending Provider at Discharge: Magnus Maya DO Primary Care Provider: Dasia Sena MD Diagnoses at Discharge Discharge Diagnosis (1) Smoking addiction: Status: Acute (2) Sinus tachycardia: Status: Acute (3) Spondylosis of cervical spine with myelopathy: Status: Acute (4) Hypomagnesemia: Status: Acute (5) Hypokalemia: Status: Acute (6) Low TSH level: Status: Acute Reason for Visit Reason for Visit: cervical spondylosis Hospital Course Hospital Course Patient was having elevated heart rate. We had a hospitalist consult. Otherwise her stay was uneventful. Physical Exam Narrative: Ambulate with walker today to the bathroom. Urinary Catheter Management: Elliott: Cath Placed During This Visit: yes, but has since been removed by the nurse Reason for Continuing Indwelling Catheter: Decision to DC Catheter Urinary Catheter Date of Insertion: 03/16/22 Urinary Catheter Time of Insertion: 10:55 Date Urinary Catheter Removed: 03/17/22 Time Urinary Catheter Discontinued: 09:49 Discharge Data Studies Completed and Pending Completed Studies During Hospitalization Category Date Time Status CTA PE [CT angio chest PE protcl [id number]] Routine Cat Scan 03/18/22 15:28 Completed XR cervical spine 3V* [id number] Routine Exams 03/16/22 Completed Pending at discharge Category Date Time Status Blood Culture Stat Lab 03/18/22 17:22 Results Complete Blood Count w/Auto AM LABS Lab 03/21/22 04:00 Ordered Comprehensive Metabolic Panel AM LABS Lab 03/21/22 04:00 Ordered Troponin(5th) 2 Hour. Timed Lab 03/20/22 16:00 Ordered Vancomycin Trough Timed Lab 03/20/22 15:30 Ordered Radiology Impressions Cervical Spine X-Ray 03/16/22 00:00 IMPRESSION: 1. Recent Posterior fusion from C3 to T2 which appears to be in satisfactory alignment. 2. Pre-existing anterior fusion from C5 to C7 is stable in appearance. Chest CTA 03/18/22 15:28 IMPRESSION: 1. Cavitary right apical mass with some improvement. The appearance is worrisome for malignancy. Please correlate with the results of prior studies and biopsy which are not presently available. 2. No evidence of pulmonary embolism. 3. Small left pleural effusion 4. Mild left basilar atelectasis. Laboratory Results WBC 10.7 10^3/uL (4.0-10.0) H 03/20/22 03:45 RBC 4.02 10^6/uL (4.1-5.3) L 03/20/22 03:45 Hgb 11.4 g/dL (11.5-15.3) L 03/20/22 03:45 Hct 37.4 % (37.0-47.0) 03/20/22 03:45 MCV 93.0 fl (81-99) D 03/20/22 03:45 MCH 28.4 pg (28.0-34.0) 03/20/22 03:45 MCHC 30.5 g/dL (30.0-36.0) D 03/20/22 03:45 RDW 15.6 % (12.1-15.1) H 03/20/22 03:45 Plt Count 417 10^3/cmm (130-400) H 03/20/22 03:45 MPV 9.0 fL (7.4-10.4) 03/20/22 03:45 Neut % (Auto) 67.1 % 03/20/22 03:45 Lymph % (Auto) 14.6 % 03/20/22 03:45 [place] % (Auto) 13.1 % 03/20/22 03:45 Eos % (Auto) 4.3 % 03/20/22 03:45 Baso % (Auto) 0.5 % 03/20/22 03:45 Neut # (Auto) 7.21 10^3/uL (1.8-7.7) 03/20/22 03:45 Lymph # (Auto) 1.6 10^3/uL (0.8-4.8) 03/20/22 03:45 [place] # (Auto) 1.4 10^3/uL (0.2-0.9) H 03/20/22 03:45 Eos # (Auto) 0.5 10^3/uL (0.0-0.8) 03/20/22 03:45 Baso # (Auto) 0.1 10^3/uL (0.0-0.1) 03/20/22 03:45 Nucleated RBC % (auto) 0 % 03/20/22 03:45 Nucleated RBCs # 0.0 /100WBC 03/20/22 03:45 Sodium 136 mmol/L (136-145) 03/20/22 03:45 Potassium 4.7 mmol/L (3.5-5.1) 03/20/22 03:45 Chloride 103 mmol/L (98-107) 03/20/22 03:45 Carbon Dioxide 24 mmol/L (22-29) 03/20/22 03:45 Anion Gap 13.7 (5-19) 03/20/22 03:45 BUN 12 mg/dL (6-20) 03/20/22 03:45 Creatinine 0.7 mg/dL (0.5-0.9) 03/20/22 03:45 GFR Calculation 86.2 mL/min (90-130) L 03/20/22 03:45 Glucose 101 mg/dL (65-115) 03/20/22 03:45 POC Glucose 111 mg/dL (70-110) H 03/18/22 06:28 Estimat Average Glucose 131 03/19/22 04:30 Hemoglobin A1c 6.2 % (4.0-6.0) H 03/19/22 04:30 Calculated Osmolality 282 mOsm/kg (285-295) L 03/20/22 03:45 Lactic Acid 0.7 mmol/L (0.5-2.2) 03/18/22 17:18 Calcium 9.0 mg/dL (8.5-10.5) 03/20/22 03:45 Magnesium 1.9 mg/dL (1.7-2.3) 03/20/22 03:45 Total Bilirubin 0.2 mg/dL (0.15-1.2) 03/20/22 03:45 AST 12 U/L (0-32) 03/20/22 03:45 ALT 7 U/L (0-33) 03/20/22 03:45 Alkaline Phosphatase 86 IU/L (35-105) 03/20/22 03:45 Troponin T Baseline 18 ng/L (0-10) H 03/18/22 15:25 Troponin T 120 Minute 17.51 ng/L (0-10) H 03/18/22 17:18 Delta Troponin T -0.49 ABS# (0-10) L 03/18/22 17:18 Troponin T Hi Sens 6Hr 18.64 ng/L (0-10) H 03/18/22 21:40 Troponin T Hi Sens 6Hr Delta 0.64 ng/L (0-12) 03/18/22 21:40 Total Protein 6.1 g/dL (6.6-8.7) L 03/20/22 03:45 Albumin 2.8 g/dL (3.5-5.2) L 03/20/22 03:45 Globulin 3.3 g/dL (1.3-4.6) 03/20/22 03:45 TSH 0.17 uIU/mL (0.27-4.20) L 03/18/22 15:25 Free T4 0.89 ng/dL (0.82-1.77) 03/20/22 03:45 Urine Color Straw (Yellow) 03/19/22 01:30 Urine Appearance Clear (CLEAR) 03/19/22 01:30 Urine pH 8 (5-7) H 03/19/22 01:30 Ur Specific [place] 1.010 (1.005-1.030) 03/19/22 01:30 Urine Protein Neg (Negative) 03/19/22 01:30 Urine Glucose (UA) Norm (Normal) 03/19/22 01:30 Urine Ketones Negative (Negative) 03/19/22 01:30 Urine Blood Neg (Negative) 03/19/22 01:30 Urine Nitrate Negative (Negative) 03/19/22 01:30 Urine Bilirubin Neg (Negative) 03/19/22 01:30 Prot Sulfosalicylic Acd Negative (Negative) 03/19/22 01:30 Urine Urobilinogen Norm mg/dL (Negative) 03/19/22 01:30 Ur Leukocyte Esterase Negative (Negative) 03/19/22 01:30 Coronavirus 229E (PCR) Not detected (NOT DETECT) 03/18/22 22:58 SARS-CoV-2 (PCR) Not detected (NOT DETECT) 03/18/22 22:58 Blood Type O Positive 03/16/22 11:46 Rho(D) Type Positive 03/16/22 11:46 Antibody Screen Negative 03/16/22 11:46 Vitals Last Vital Signs Temp 98 F 03/20/22 05:41 Pulse 89 03/20/22 05:41 Resp 16 03/20/22 05:41 BP 104/70 03/20/22 05:41 Pulse Ox 90 03/20/22 05:41 Discharge Plan Discharge Patient Disposition: Home Condition: Stable Prescriptions: New hydrocodone-acetaminophen 10-325 mg tablet 1 - 2 tab PO Q4H PRN (Reason: pain) 7 Days Qty: 40 0RF Continued omega-3 acid ethyl esters 1 gram capsule 1 cap PO DAILY 0RF venlafaxine 75 mg capsule,extended release 24hr 75 mg PO DAILY 0RF gabapentin 600 mg tablet 600 mg PO TID 0RF cholecalciferol (vitamin D3) 125 mcg (5,000 unit) capsule 125 mcg PO DAILY 0RF latanoprost 0.005 % drops 1 drp ophthalmic (eye) DAILY 0RF (DME) Physical Therapy- [facility] See Rx Instructions .Route .MEDSUPPLY Qty: 1 0RF Rx Instructions: Please evaluate and treat. hydrocodone-acetaminophen 5-325 mg tablet 1 - 2 tab PO .Q4-6H PRN (Reason: pain) 7 Days Qty: 40 0RF lisinopril 2.5 mg Tablet 2.5 mg PO BEDTIME 0RF alprazolam [Xanax] 1 mg Tablet 1 mg PO TID 0RF pravastatin 20 mg Tablet 20 mg PO DAILY 0RF ondansetron HCl 4 mg Tablet 4 mg PO Q8H PRN (Reason: Nausea) 0RF tramadol 50 mg Tablet 50 - 100 mg PO Q6H PRN (Reason: Pain) 0RF Discharge Orders: Discharge Order (Routine); Ordered 03/20/22 Ordered By: Magnus Maya Other Ambulatory Orders: DME: Walker (Order) Location: None Selected Ordered By: Magnus Maya Discharge Diet: Advance as tolerated Discharge Activity: Limit activity as instructed Patient Instructions: Opioid Safety Activity Restrictions/Additional Instructions: Thank you for choosing [facility] for your care! The arron lowing is a list of instructions, from your provider, to follow upon your discharge to ensure you have the optimal recovery from your recent injury or surgery. Anterior Cervical Discectomy and Fusion: What to Expect at Home Your Recovery Follow-up care is a ceballos part of your treatment and safety. Be sure to make and go to all appointments, and call your doctor if you are having problems. If you do not already have a follow-up appointment made, call office in the next 1-3 days to make follow up appointment for 2 weeks at [phone]. It is also a good idea to know your test results and keep a list of the medicines you take. You can expect your neck to feel stiff or sore after surgery. This should improve in the weeks after surgery. But it may take 4 to 6 months for you to get better completely. You may have trouble sitting or standing in one position for very long and may need pain medicine in the weeks after your surgery. It may take 4 to 6 weeks to get back to your usual activities, but it may depend on what kind of surgery you had. Your throat will feel sore and it may be difficult to swallow for the first 3 days after your surgery. As long as you can get liquids down without difficulty, this should slowly improve, otherwise call our office or seek medical attention if it becomes increasingly difficult to get anything down including liquids. Avoid hot liquids for first 3-5 days. Soothing foods/liquids such as jello, pudding, and luke warm soups are recommended until swallowing improves. Staying elevated will also help, it's advised you keep propped up at while sleeping to help reduce the swelling. You may use an ice pack directly on your incision or around it on the front of your neck, using a cloth to protect your skin; and a heating pad to the back of your neck as needed. Do not use over the counter anti-inflammatory medications (Ibuprofen, Motrin, Aleve, Advil, etc) Taking these meds after having a fusion can delay fusion rates, we recommend you avoid them for the first 3 months after your surgery[address] Dr. Maya may advise you to work with a physical therapist to strengthen the muscles around your neck and back - this will be discussed at your follow - up appointments. The pain or numbness you were having in your arms before surgery should get better or go away completely. This care sheet gives you a general idea about how long it will take for you to recover. But each person recovers at a different pace. Follow the steps below to get better as quickly as possible. How can you care for yourself at home? Activity ? Rest when you feel tired. Getting enough sleep will help you recover. ? Try to walk each day. Start by walking a little more than you did the day before. Bit by bit, increase the amount you walk. Walking boosts blood flow and helps prevent pneumonia and constipation. Walking may also decrease your muscle soreness after surgery. ? No lifting anything that is more that 5 pounds. This may include heavy grocery bags and milk containers, a heavy briefcase or backpack, cat litter or dog food bags, a child, or a vacuum press cleaner. ? Avoid strenuous activities, such as bicycle riding, jogging, weightlifting, or aerobic exercise, until your doctor says it is okay. ? Do not drive until your follow-up visit after your surgery, or until your doctor says it isokay. ? Avoid taking long car trips for 2 to 4 weeks after surgery. Your neck may become tired and painful from sitting too long in one position. ? You will probably need to take 4 to 6 weeks off from work. It depends on the type of work you do and how you feel. ? You may have sex as soon as you feel able, but avoid positions that put stress on your neck or cause pain. Diet ? You can eat your normal diet. If your stomach is upset, try bland, low-fat foods like plain rice, broiled chicken, toast, and yogurt ? Drink plenty of fluids. If you have kidney, heart, or liver disease and have to limit fluids, talk with your doctor before you increase the amount of fluids you drink. ? You may notice that your bowel movements are not regular right after your surgery. This is common. Try to avoid constipation and straining with bowel movements. You may want to take a fiber supplement every day. If you have not had a bowel movement after a couple of days, ask your doctor about taking a mild laxative. Medicines ? Take pain medicines exactly as directed. 1. If Dr. Maya gave you a prescription medicine for pain, take lt as prescribed. 2. Do not take two or more pain medicines at the same time unless the doctor told you to. Many pain medicines have acetaminophen, which is Tylenol. Too much acetaminophen {Tylenol) can be harmful. 3. If you think your pain pill is making you sick to your stomach: 4. Take your pills after meals (unless your doctor has told you not to). 5. Ask your Dr. for a different pain pill. Incisioncare ? Remove your dressing 48hours after your surgery. Ok to shower and get the incision wet. Do not overtly wash your incision. When done, pad dry, leave open to air thereafter. Avoid creams and ointments directly on your incision. ? Your sutures in the incision will dissolve and fall out on their own. ? Keep the area clean and dry. You may cover it with a gauze bandage if it weeps or rubs against clothing; if you choose to do this, change the dressing everyday. Other instructions ? Use a heating pad, hot water bottle, or gentle massage on your back to reduce stiffness. Avoid putting heat on your incision When should you call for help? ? Call 911 anytime you think you may need emergency care. For example, call if: ? You pass out (lose consciousness). ? You have sudden chest pain and shortness of breath, or you cough upblood. ? You cannot swallow. ? You have severe pain in your neck or back. ? Call your Dr. or seek immediate medical care if: ? You have pain that does not get better after you take pain pills. ? You have loose stitches, or your incision comes open. ? You have blood or fluid draining from the incision. ? You have signs of infection, such as: 1. Increased pain, swelling, warmth, or redness. 2. Red streaks leading from the site. 3. Pus draining from the site. 4. Swollen lymph nodes in your neck or armpits. 5. A fever. ? You have severe pain in your arms. ? You have new or increased weakness or numbness in your arms. ? Watch closely for any changes in your health, and be sure to contact your doctor if: ? You do not have a bowel movement after taking a laxative. Discharge Attestations Time Spent in Discharge Care*: less than 30 min Quality Metrics Clinical Quality Measures [ No reported AMI, CVA or VTE this stay] Coding Level of Care Code Acute [facility]g [facility] note Diagnoses Smoking addiction F17.200 Sinus tachycardia R00.0 Spondylosis of cervical spine with myelopathy M47.12 Hypomagnesemia E83.42 Hypokalemia E87.6 Low TSH level R79.89
[2022-03-20 08:30] VITALS: BP 109/72; PULSE 99; RESP 16; TEMP 36.4; O2SAT 90
[2022-03-20] MEDS: enoxaparin 40 mg/0.4 mL Syringe SUBCUT (09:19)
[2022-03-20] MEDS: nicotine 21 mg Patch 1 PATCH TRANSDERMA (09:19)
[2022-03-20] MEDS: HYDROcodone-acetaminophen 5-325 mg Tablet PO ×2 (09:19→13:29)
[2022-03-20] MEDS: gabapentin 300 mg Capsule 600 MG PO (09:20)
[2022-03-20] MEDS: atorvastatin 40 mg Tablet 20 MG PO (09:20)
[2022-03-20] MEDS: metoprolol succinate ER (24 HR) 25 mg Tablet 12.5 MG PO (09:20)
[2022-03-20] MEDS: magnesium oxide 400 mg tablet PO (09:20)
[2022-03-20] MEDS: omega-3 fatty acids 1,000 mg Capsule 1000 MG PO (09:20)
[2022-03-20] MEDS: docusate sodium 100 mg Capsule PO (09:20)
[2022-03-20] MEDS: cholecalciferol (vitamin D3) 5,000 unit Tablet 5000 UNIT PO (09:20)
[2022-03-20] MEDS: latanoprost 0.005% Op Soln 2.5 mL Btl 1 DROP OPHTHALMIC (09:46)
--- NOTE | 2022-03-20 10:38 | P.PN_ITS ---
Subjective Subjective: 56-year-old female underwent C-spine surgery with Dr. Maya and scheduled for discharge today. We consulted due to and is tachycardia to 120s. Patient does have COPD and smokes a pack a day. She reports family history positive for A. fib currently is in a C-spine collar and says we will try to quit smoking patient had low TSH but free T4 was not elevated either. They were both on the low side. Patient is thin Patient's venlafaxine was decreased to 37.5 mg daily due to tachycardia and I added metoprolol XL 12.5 mg daily. Magnesium was low at 1.5 and replaced to 1.9. Potassium 3.7 replaced to 4.7. She will be on long-term magnesium supplementation Vitals/I&O/Wt Last Vital Signs Temp 97.5 F L 03/20/22 08:30 Pulse 99 03/20/22 08:30 Resp 16 03/20/22 08:30 BP 109/72 03/20/22 08:30 Pulse Ox 90 03/20/22 08:30 03/19/22 03/20/22 03/20/22 22:59 06:59 14:59 Intake Total 690 / 1180 170 / 1350 Output Total 500 / 1000 300 / 1300 900 / 900 Balance 190 / 180 -130 / 50 -900 / -900 Physical Exam Narrative: General well-developed very thin female in no acute cardiopulmonary distress CV irregular with rate controlled Lungs prolonged expiratory phase no wheezing or crackles Abdomen positive bowel sounds soft nontender Calves no tenderness or pretibial edema Mood and affect are appropriate Urinary Catheter Management: Elliott: Cath Placed During This Visit: yes, but has since been removed by the nurse Reason for Continuing Indwelling Catheter: Decision to DC Catheter Urinary Catheter Date of Insertion: 03/16/22 Urinary Catheter Time of Insertion: 10:55 Date Urinary Catheter Removed: 03/17/22 Time Urinary Catheter Discontinued: 09:49 Data : 03/20/22 03:45 03/20/22 03:45 Micro: Microbiology 03/18/22 17:22 Blood Culture - Preliminary Blood NEGATIVE TO DATE 03/18/22 17:18 Blood Culture - Preliminary Blood NEGATIVE TO DATE A&P Assessment and plan (1) Sinus tachycardia: Treat with low-dose metoprolol 12.5 mg daily and magnesium replacement. Patient is counseled to quit smoking Status: Acute (2) Hypomagnesemia: Magnesium 400 mg twice a day follow-up in the clinic with a lab Status: Acute (3) Smoking addiction: Continue nicotine patch recommend patient quit smoking. She is at high risk for developing atrial fibrillation and we discussed that Status: Acute Attestations Medical Necessity Statement*: Discharge home today Time Spent in Patient Care: Greater than 35 minutes Coding Level of Care Code Acute Rn Clinical Resource for Edna Abad Diagnoses Sinus tachycardia R00.0 Hypomagnesemia E83.42 Smoking addiction F17.200
[2022-03-20 11:53] VITALS: BP 107/73; PULSE 97; RESP 16; TEMP 36.2; O2SAT 93
[2022-03-20 13:52] VITALS: BP 107/73; PULSE 97; RESP 16; TEMP 36.2; O2SAT 93
== END 2022-03-20 13:58 | disposition home health service (06) | DRG 460 ==
LOC: MEDSURG 14:00
PROVIDERS: Anesthesiology; Internal Medicine; Admitting Provider Orthopaedic Surgery; PCP Obstetrics & Gynecology; Visit Provider Orthopaedic Surgery
PROC: 0RG2071 Fusion of 2 or more Cervical Vertebral Joints with Autologous Tissue Substitute, Posterior Approach, Posterior Column, Open Approach (ICD-10-PCS; CPT 22600; principal; 2022-03-16 10:40)
DX: M47.812 Spondylosis without myelopathy or radiculopathy, cervical region (principal); R00.0 Tachycardia, unspecified; F17.200 Nicotine dependence, unspecified, uncomplicated; R73.9 Hyperglycemia, unspecified; F41.9 Anxiety disorder, unspecified; I50.9 Heart failure, unspecified; J44.9 Chronic obstructive pulmonary disease, unspecified; E83.42 Hypomagnesemia; E87.6 Hypokalemia
CPT/HCPCS: 36415; 36416; 51702; 71275; 72040; 76000; 80048; 80053; 81003; 82962; 83036; 83605; 83735; 84439; 84443; 84484; 85025; 86850; 86900; 87040; 87635; 93005; 96372; 97110; 97116; 97161; C1713; J0330; J0696; J1100; J1170; J1650; J1885; J2270; J2370; J2405; J2704; J2710; J3010; J3370; J3475; J3490; J7050; L0174; Q9967

== ENCOUNTER → 2022-04-03 09:33 | Outpatient (BNVA) | payer MEDICARE, MEDICAID, SELFPAY | PROVIDERS: PCP Obstetrics & Gynecology; Visit Provider Orthopaedic Surgery | DX: Z47.89 Encounter for other orthopedic aftercare (principal); Z98.1 Arthrodesis status | CPT/HCPCS: 72040; 99024 ==

== ENCOUNTER → 2022-04-24 11:07 | Outpatient (BNVA) | payer MEDICARE, MEDICAID, SELFPAY | PROVIDERS: PCP Obstetrics & Gynecology; Visit Provider Orthopaedic Surgery | DX: Z47.89 Encounter for other orthopedic aftercare (principal); Z98.890 Other specified postprocedural states; Z98.1 Arthrodesis status | CPT/HCPCS: 72040; 99024 ==

== ENCOUNTER → 2022-06-05 12:02 | Outpatient (BNVA) | payer MEDICARE, MEDICAID, SELFPAY | PROVIDERS: PCP Obstetrics & Gynecology; Visit Provider Orthopaedic Surgery | DX: Z47.89 Encounter for other orthopedic aftercare (principal); Z98.1 Arthrodesis status | CPT/HCPCS: 72040; 99024 ==

== ENCOUNTER → 2022-07-19 08:38 | Outpatient (BNVA) | payer MEDICARE, MEDICAID, SELFPAY | PROVIDERS: PCP Obstetrics & Gynecology; Visit Provider Orthopaedic Surgery | DX: Z47.89 Encounter for other orthopedic aftercare (principal); Z98.1 Arthrodesis status | CPT/HCPCS: 99213 ==

== ENCOUNTER → 2022-07-24 11:18 | Outpatient (BNVA) | payer MEDICARE, MEDICAID, SELFPAY | PROVIDERS: PCP Obstetrics & Gynecology; Visit Provider Physician Assistant | DX: M54.2 Cervicalgia (principal); Z98.1 Arthrodesis status | CPT/HCPCS: 72040; 99214 ==

== ENCOUNTER → 2022-10-23 14:44 | Outpatient (BNVA) | payer MEDICARE, MEDICAID, SELFPAY | PROVIDERS: PCP Obstetrics & Gynecology; Visit Provider Orthopaedic Surgery | DX: M54.2 Cervicalgia (principal); Z98.1 Arthrodesis status | CPT/HCPCS: 72040; 99214 ==

== ENCOUNTER → 2025-04-13 14:40 | Outpatient (BNVA) | payer MEDICARE, MEDICAID, SELFPAY | PROVIDERS: PCP Obstetrics & Gynecology; Visit Provider Orthopaedic Surgery | DX: M47.12 Other spondylosis with myelopathy, cervical region (principal); Z98.1 Arthrodesis status; M54.2 Cervicalgia; Z46.89 Encounter for fitting and adjustment of other specified devices | CPT/HCPCS: 72050; 99213 ==